=== PATIENT | male | born 1975 | race Caucasian/White ===

== ENCOUNTER → 2019-10-05 10:02 | Outpatient (CLI) | payer OTHER, SELFPAY ==
[2019-10-05 09:57] VITALS: BMI 31.4
--- NOTE | 2019-10-05 10:02 | RAD_ITS ---
STUDY: X-RAY - RIGHT SHOULDER REASON FOR EXAM: Male, 44 years old. CHRONIC RT SHOULDER PAIN X 3 MONTHS TECHNIQUE: 4 view(s) of the shoulder. COMPARISON: None. FINDINGS: Normal glenohumeral articulation. Normal acromioclavicular joint. Normal acromion. Normal humeral head and visualized proximal humerus. The soft tissue structures are unremarkable. Normal visualized pulmonary apex. RAD/Shoulder min 2 Views IMPRESSION: Normal x-ray examination of the shoulder. Electronically Signed: Faizan Leonardo, at 15:27 EDT , Service support ,
== END ==
LOC: HPRAD 10:02
PROVIDERS: Referring Provider Orthopaedic Surgery; Visit Provider Orthopaedic Surgery
DX: M25.511 Pain in right shoulder (principal)
CPT/HCPCS: 73030

== ENCOUNTER 2020-01-20 13:53 | Emergency (ER) | payer OTHER, SELFPAY ==
[2019-10-05 09:57] VITALS: BMI 31.4
[2020-01-20 13:54] VITALS: BP 138/95; PULSE 88; RESP 24; TEMP 37; O2SAT 94; BMI 31.4
--- NOTE | 2020-01-20 14:22 | CT_ITS ---
STUDY: CT BRAIN WITHOUT CONTRAST REASON FOR EXAM: Male, 44 years old. RECENT FALL, Dizziness, slurred SPEECH RADIATION DOSAGE (If Supplied By Facility): CTDIvol = ( 44.99 ) mGy, DLP = ( 762.36 ) mGycm TECHNIQUE: Transaxial CT imaging of the brain was performed without administration of intravenous contrast material. Individualized dose optimization techniques were used for this CT. COMPARISON: No relevant priors. FINDINGS: Normal soft tissue structures. Normal calvarium. Normal size ventricles and extra-axial spaces for the patient''s age. Normal white matter tracts of the cerebral hemispheres. Normal basal ganglia and thalami. Normal brainstem. Normal cerebellum. There is no intracranial hemorrhage. There are no findings of an acute ischemic infarction. Normal visualized paranasal sinuses. CT/Brain/Head without Contrast IMPRESSION: Normal unenhanced CT scan of the brain. Electronically Signed: Faizan Leonardo, at 15:21 EDT , Service support ,
--- NOTE | 2020-01-20 14:26 | EKG12_ITS ---
Test Reason : FALL Blood Pressure : / mmHG Vent. Rate : 080 BPM Atrial Rate : 080 BPM P-R Int : 150 ms QRS Dur : 092 ms QT Int : 408 ms P-R-T Axes : 046 086 042 degrees QTc Int : 470 ms Normal sinus rhythm Normal ECG Confirmed by ALEXUS SULLIVAN, NILSON ([id number]), editor greeting card NOÉ MCNEILL ([id number]) on 01/23/2020 2:49:26 PM Referred By: BIANCA Confirmed By:JESSICA VAUGHAN MD
[2020-01-20 14:53] VITALS: RESP 16
--- NOTE | 2020-01-20 14:53 | CT_ITS ---
STUDY: CT CERVICAL SPINE WITHOUT CONTRAST REASON FOR EXAM: Male, 44 years old. RECENT FALL, DIZZINESS,SLURRED SPEECH RADIATION DOSAGE (If Supplied By Facility): CTDIvol = ( 26.53 ) mGy, DLP = ( 591.45 ) mGycm TECHNIQUE: High resolution transaxial imaging was performed without contrast material. Sagittal and coronal images were reconstructed. Individualized dose optimization techniques were used for this CT. COMPARISON: None FINDINGS: Normal craniovertebral junction. Normal anterior atlantoaxial articulation. Normal odontoid process. There is straightening of the normal cervical lordosis. Normal vertebral bodies and posterior osseous elements. C2-3: Normal endplates. Normal disc height and morphology. Normal central canal and intervertebral neuroforamina. C3-4: Normal endplates. Normal disc height and morphology. Normal central canal and intervertebral neuroforamina. C4-5: Normal endplates. Normal disc height and morphology. Normal central canal and intervertebral neuroforamina. C5-6: Moderate degree of disc space narrowing. Anterior and posterior spondylosis. There is evidence of a uncovertebral arthrosis with moderate narrowing of the right intervertebral foramen. C6-7: Posterior spondylosis causing deformity of the central sac worse on the right side of the midline. Uncovertebral arthrosis. Bilateral neural foraminal stenosis worse on the right side. C7-T1: Normal endplates. Normal disc height and morphology. Normal central canal and intervertebral neuroforamina. Normal visualized soft tissue structures. CT/Spine Cervical without Contras IMPRESSION: Disc space narrowing at the C5-C6 and C6-C7 levels with evidence of bile moderate degree of the right neural foraminal stenosis at both levels and mild neural foraminal stenosis at the C6-C7 level on the left side. Electronically Signed: Faizan Leonardo, at 15:22 EDT , Service support ,
--- NOTE | 2020-01-20 14:59 | ED.VIS.GEN ---
History of Present Illness <Marcelino Foreman - Last Filed: 01/20/20 15:00> Informant: Patient, Family, Unit Technician Limited by: Stupor Onset: Weeks - 2 weeks Context: Gradual Onset Timing: Intermittent Quality: off balance Location: head Current Severity: Mild Maximum Severity: Severe Worsened by: walking Relieved by: nothing Associated Symptoms: dizzy Narrative: 44-year-old male history of type 2 diabetes presents after a fall by squad. He has had multiple falls and has been off balance and dizzy over the last several weeks. He has had outpatient work-up with his primary care without a diagnosis. He has been feeling well so his took him to the urgent care this morning and they ordered labs and other test which have not resulted. She came home to find him on the ground after another fall with a contusion on the left side of his face. Patient history is somewhat limited from the patient as he is somewhat confused. Rest review of systems negative Prior similar symptoms: No Recent Illness/Hospitalization: No <Danny Dumont - Last Filed: 01/20/20 16:17> Chief Complaint: Alt LOC Past Medical History <Marcelino Foreman - Last Filed: 01/20/20 15:00> Prior records reviewed: Yes Past Medical History: - - T2DM Surgical History: - - gastric bypass Lives: With Family Smoking Status: Never smoker Alcohol: None Drugs: None <Danny Dumont - Last Filed: 01/20/20 16:17> - Allergies and Home Meds Allergies/Adverse Reactions: Allergies Penicillins Allergy (Severe, Verified 10/05/19 09:59) Low blood pressure Patient lost consciousness with an injection Primary Care Physician: Dimitrios Mark MD [Primary Care Provider] - Review of Systems All systems negative except as indicated General: Denies: Chills, Fever, Sweats Eyes: Denies: Visual changes - bilaterally, Diplopia ENT: Denies: Rhinorrhea, Sore throat Cardiovascular: Denies: Chest pain, Palpitations Respiratory: Denies: Dyspnea, Cough, Dyspnea on exertion Gastrointestinal: Denies: Abdominal pain, Nausea, Vomiting, Diarrhea, Melena, Hematochezia Genitourinary: Denies: Dysuria, Hematuria, Frequency Musculoskeletal: Denies: Back pain, Extremity Pain Skin: Reports: Abrasions. Denies: Rash, Wounds Neurological: Denies: Headache, Weakness, Parasthesia, Numbness <Danny Dumont - Last Filed: 01/20/20 16:17> Physical Exam Vital Signs/Narrative: Vital Signs Temp Pulse Resp BP Pulse Ox 01/20/20 14:53 16 01/20/20 13:54 98.6 F 88 24 H 138/95 H 94 <Marcelino Foreman - Last Filed: 01/20/20 15:00> Vital Signs/Narrative: Vital Signs Temp Pulse Resp BP Pulse Ox 01/20/20 14:53 16 01/20/20 13:54 98.6 F 88 24 H 138/95 H 94 Inital Vital Signs reviewed: Yes General: Well nourished, Well developed, No Acute Distress Head: Normocephalic, Atraumatic Eyes: Perrl, EOMI ENT: Moist mucous membranes, No rhinorrhea Neck: Supple, Nontender Cardiovascular: Regular rate, Regular rhythm, No murmurs Respiratory: No distress, CTA bilaterally, Chest nontender Abdomen: Soft, Nontender, Nondistended, Normal bowel sounds Back: Nontender, Normal Inspection Extremities: Nontender, No edema Skin: Normal color, No rash, Trauma - abrasion left side of forehead without laceration Neurological: Alert, Oriented x3, Cranial nerves II-XII grossly intact, Normal Strength, Normal Sensation Psychological: Normal affect, Normal Mood <Danny Dumont - Last Filed: 01/20/20 16:17> Diagnostic/Tx/Re-eval - Medical Decision Making Evaluating this patient with our physician workforce development assistant. 44-year-old male with recent falls with left-sided head injury. He has had extensive work-up done to [facility] for GI complaints without any specific diagnosis. states due to fall today he has a contusion left side of his face. He seems to be acting abnormally. He is asked her multiple times why he is in the emergency department. She states when she went home he was laying down the dog was licking his face and he just did not seem to be with it. He was not unconscious. Middle-age male no acute distress vital signs stable afebrile. HEENT exam pupils round reactive laser motions are intact. Tongue midline no bite hidalgo. No swelling. Dentition intact. He has an old contusion his left forehead he has an abrasion and contusion left side of his face lateral to his eye and over his cheekbone. There is no gross bony deformities. C-spine nontender. Trachea midline. Lungs clear to auscultation. Heart regular rhythm no murmur. Chest were nontender. Abdomen soft nontender. Patient moving all 4 extremities. He has normal curator natural history museum strength bilaterally. 5 out of 5. Normal dorsi plantarflexion. He can lift either leg. Fingertip to nose within normal limits. He did know day, month and year. CAT scan labs are being obtained. Impression: 1. Acute fall with closed head injury <Marcelino Foreman - Last Filed: 01/20/20 15:00> Impressions Brain CT 01/20/20 14:22 IMPRESSION: Normal unenhanced CT scan of the brain. Electronically Signed: Faizan Jorden, at 15:21 EDT , Service support , Cervical Spine CT 01/20/20 14:53 IMPRESSION: Disc space narrowing at the C5-C6 and C6-C7 levels with evidence of bile moderate degree of the right neural foraminal stenosis at both levels and mild neural foraminal stenosis at the C6-C7 level on the left side. Electronically Signed: Faizan Leonardo, at 15:22 EDT , Service support , 01/20/20 14:22 CT Brain [Brain/Head without Contrast] [CT] Stat 01/20/20 14:53 CT Spine [Spine Cervical without Contras] [CT] Stat Laboratory Results 01/20/20 01/20/20 13:50 13:50 WBC 5.7 RBC 4.87 Hgb 17.3 H Hct 50.9 MCV 104.5 H MCH 35.5 H MCHC 34.0 RDW Std Deviation 48.3 H RDW Coeff of Wale 12.3 Plt Count 201 MPV 10.3 Immature Gran % (Auto) 0.200 Neut % (Auto) 53.2 Lymph % (Auto) 34.6 Kemper % (Auto) 10.2 H Eos % (Auto) 1.4 Baso % (Auto) 0.4 Absolute Neuts (auto) 3.0 Absolute Lymphs (auto) 1.96 Nucleated RBC % 0 Sodium 145 Potassium 3.9 Chloride 110 H Carbon Dioxide 27.0 Anion Gap 8 BUN 8 Creatinine 0.79 Estim Creat Clear Calc 125.76 Est GFR (MDRD) Af Amer 137 Est GFR (MDRD) Non-Af 113 BUN/Creatinine Ratio 10.2 Glucose 98 Calcium 8.3 L - EKG Initial EKG Interpretation: Sinus Rhythm, No Acute Injury Pattern Prior: No Prior - Medical Decision Making EKG CT and labs all came back unremarkable. The patient is resting comfortably. At this time we feel this is likely from a postconcussive syndrome. Head injury precautions and supportive care were discussed he will follow-up with his primary care on Thursday or return for worsening symptoms. <Danny Dumont - Last Filed: 01/20/20 16:17> ED Disposition <Marcelino Foreman - Last Filed: 01/20/20 15:00> <Danny Dumont - Last Filed: 01/20/20 16:17> - Plan for ED Patient: Disposition: Home or Assisted Living Diagnosis: Post concussive syndrome, Facial abrasion Referrals: Dimitrios Mark MD [Primary Care Provider] -
--- NOTE | 2020-01-20 15:00 | ED.VISSUMM ---
- ER Visit Summary Date of Service: 01/20/20 Chief Complaint: [] History of Present Illness: The patient is a 44 M [] Physical Examination: [] Test Results: [] Emergency Department Course and Treatment: [] Treatment Plan: [] Disposition: [] Impression: [] This note was generated with [place]. com. cn dictation software. It may contain incorrect words, spelling, and punctuation that were not noted in review of the chart prior to signing ED Disposition - Plan for ED Patient: Referrals: Dimitrios Mark MD [Primary Care Provider] -
[2020-01-20 15:14] LABS: Absolute Lymphocyte Count 1.96 X10^3/uL (0.83-4.51); Basophil# 0.02 X10^3/uL; Basophil% 0.4 % (0-1); Eosinophil# 0.08 X10^3/uL; Eosinophils% 1.4 % (0-5); Hematocrit 50.9 % (40-54); Hemoglobin 17.3 g/dL (13.0-16.5); Lymphocyte # 1.96 X10^3/ul (4.0); Lymphocyte % 34.6 % (19-41); Mean Corpuscular Hgb 35.5 pg (27.0-32.0); Mean Corpuscular Volume 104.5 fL (80-94); Mean Platelet Vol. 10.3 fl (6.2-12.0); Monocyte# 0.58 X10^3/uL; Monocyte% 10.2 % (0-10); NRBC Flagged by Analyzer 0 % (0-5); Neutrophil # 3.02 X10^3/uL (2.7-7.7); Neutrophil % 53.2 % (47-70); Platelet Count 201 K/mm3 (150-450); RBC Distribution Width CV 12.3 % (11.6-14.6); RBC Distribution Width SD 48.3 fl (35.1-43.9); Red Blood Count 4.87 M/mm3 (4.6-6.2); White Blood Count 5.7 K/mm3 (4.4-11.0)
[2020-01-20 15:15] VITALS: BP 123/92; PULSE 88; RESP 14; O2SAT 98
[2020-01-20 15:26] LABS: Anion Gap 8 (5-15); BUN 8 mg/dL (7-18); BUN/Creat Ratio 10.2 RATIO (10-20); Calcium,Total 8.3 mg/dL (8.5-10.1); Chloride 110 mmol/L (98-107); Creatinine, Serum 0.79 mg/dL (0.70-1.30); EST Glomerular Filtration Rate 113 mL/min (>60); Est Glom Filt Rate - Afr Amer 137 mL/min (>60); Estimated Creatinine Clearance 125.76 ml/min; Glucose 98 mg/dL (74-106); Potassium 3.9 mmol/L (3.5-5.1); Sodium Level 145 mmol/L (136-145)
[2020-01-20 16:06] VITALS: BP 130/86; PULSE 87; RESP 17; O2SAT 97
[2020-01-20 16:08] LABS: Bacteria 0 SEEN /hpf (None Seen); Mucous, Urine 0 SEEN /hpf (<or=2+); Red Blood Cells-Urine 0 SEEN /hpf (0-5); Squamous Epithelial Cells - UA 0 SEEN /hpf (0-5); White Blood Cells 0 SEEN /hpf (0-5)
[2020-01-20 16:53] LABS: Color, Urine Yellow (Yellow); Glucose, Dipstick Normal (Normal); Ketone-Dipstick Negative (Negative); Leukocyte Esterase-Dipstick Negative /ul (Negative); Nitrite-Dipstick Negative (Negative); Occult Blood-Urine Negative /ul (Negative); Protein-Dipstick Negative (Negative); Urine Bilirubin Dipstick Negative (Negative); Urine Clarity Clear (Clear); Urine Urobilinogen Normal (Normal)
== END 2020-01-20 16:47 | disposition home or self-care (01) ==
PROVIDERS: Emergency Provider Physician Assistant Medical; PCP Internal Medicine
DX: F07.81 Postconcussional syndrome (principal); S00.81XA Abrasion of other part of head, initial encounter; Z98.84 Bariatric surgery status; W19.XXXA Unspecified fall, initial encounter
CPT/HCPCS: 70450; 72125; 80048; 81001; 85025; 93005; 99285; A4216

== ENCOUNTER 2020-04-17 12:55 | Emergency (ER) | payer OTHER, SELFPAY ==
[2020-04-17 12:56] VITALS: BP 151/102; PULSE 85; RESP 16; TEMP 35.8; O2SAT 98; BMI 30.7
--- NOTE | 2020-04-17 13:17 | ED.VIS.GEN ---
History of Present Illness Chief Complaint: Suicidal Informant: Patient Narrative: Patient is a 44-year-old previously healthy male who presents to the emergency department for suicidal ideation. He states he has felt this way for years. He is never acted on it. He did have a plan but his removed all the guns and ammo from the house. States that he feels like a disappointment to his family. He has been arguing with his as well. He does follow with a counselor regularly. He is on Cymbalta as well for anxiety/depression. He has been drinking over the past couple of days but he is not a regular drinker. Never been through withdrawal. No issues with drug use. Denies smoking cigarettes. He denies any other symptoms. Past Medical History - Allergies and Home Meds Allergies/Adverse Reactions: Allergies Penicillins Allergy (Severe, Verified 04/17/20 12:59) Low blood pressure Patient lost consciousness with an injection Primary Care Physician: Dimitrios Mark MD [Primary Care Provider] - As soon as possible Prior records reviewed: Yes Surgical History: - - gastric bypass Smoking Status: Never smoker Review of Systems All systems negative except as indicated General: Denies: Chills, Fever, Sweats Eyes: Denies: Visual changes - bilaterally, Diplopia ENT: Denies: Rhinorrhea, Sore throat Cardiovascular: Denies: Chest pain, Palpitations Respiratory: Denies: Dyspnea, Cough, Dyspnea on exertion Gastrointestinal: Denies: Abdominal pain, Nausea, Vomiting, Diarrhea Genitourinary: Denies: Dysuria, Hematuria, Frequency Musculoskeletal: Denies: Back pain, Extremity Pain Skin: Denies: Rash, Wounds Neurological: Denies: Headache, Weakness, Numbness Psych: Reports: Depression, Suicidal thoughts, Suicidal ideations Physical Exam Vital Signs/Narrative: Vital Signs Temp Pulse Resp BP Pulse Ox 04/17/20 12:56 96.4 F L 85 16 151/102 H 98 Inital Vital Signs reviewed: Yes General: Well nourished, Well developed, No Acute Distress Head: Normocephalic, Atraumatic Eyes: Perrl, EOMI Neck: Supple, Nontender Cardiovascular: Regular rate, Regular rhythm, No murmurs Respiratory: No distress, CTA bilaterally, Chest nontender Abdomen: Soft, Nondistended Back: Nontender, Normal Inspection Extremities: Nontender, No edema Skin: Normal color, No rash Neurological: Alert, Oriented x3, Cranial nerves II-XII grossly intact, Normal Strength, Normal Sensation Psychological: Normal affect, Normal Mood Diagnostic/Tx/Re-eval - Medical Decision Making Patient presents to the ED for suicidal ideation. He has had plans but never acted on them. Upon arrival to the emerge department vital signs within normal limits. He is in no acute distress. He is calm and cooperative on exam. Will check basic lab work for medical clearance. Will have social work and crisis evaluate. Lab work-up did not reveal any significant acute abnormality. He does have some alcohol in his system but is not over the legal limit. Social work did evaluate the patient. They do not feel he meets any inpatient criteria. He was having suicidal thoughts yesterday but does not have any plan. He does look forward to events in the future. He has been talking about his plans coming up. He is supposed to follow-up with a psychiatrist but has never made an appointment. His is going to help schedule this. All guns and ammo are out of the house. They are going to do frequent checks on him. They both feel comfortable going home. He does not want to be admitted for psychiatric placement. He is stable for discharge. Strict return precautions are discussed with him. He is discharged home in stable condition. All questions were answered. ED Disposition - Plan for ED Patient: Disposition: Home or Assisted Living Diagnosis: Suicidal ideation Instructions: Counseling for Depression Referrals: Dimitrios Mark MD [Primary Care Provider] - As soon as possible
[2020-04-17 13:41] LABS: Absolute Lymphocyte Count 0.75 X10^3/uL (0.83-4.51); Basophil# 0.02 X10^3/uL; Basophil% 0.5 % (0-1); Eosinophil# 0.06 X10^3/uL; Eosinophils% 1.4 % (0-5); Hematocrit 46.8 % (40-54); Hemoglobin 15.6 g/dL (13.0-16.5); Lymphocyte # 0.75 X10^3/ul (4.0); Mean Corp Hgb Conc 33.3 g/dL (32-36); Mean Corpuscular Hgb 35.1 pg (27.0-32.0); Mean Corpuscular Volume 105.2 fL (80-94); Monocyte# 0.57 X10^3/uL; Monocyte% 12.9 % (0-10); NRBC Flagged by Analyzer 0 % (0-5); Neutrophil # 3.01 X10^3/uL (2.7-7.7); Platelet Count 176 K/mm3 (150-450); RBC Distribution Width CV 13.2 % (11.6-14.6); RBC Distribution Width SD 50.7 fl (35.1-43.9); Red Blood Count 4.45 M/mm3 (4.6-6.2); White Blood Count 4.4 K/mm3 (4.4-11.0)
[2020-04-17 13:53] LABS: Anion Gap 4 (5-15); BUN 9 mg/dL (7-18); BUN/Creat Ratio 11.2 RATIO (10-20); Calcium,Total 8.6 mg/dL (8.5-10.1); Chloride 106 mmol/L (98-107); EST Glomerular Filtration Rate 111 mL/min (>60); Est Glom Filt Rate - Afr Amer 134 mL/min (>60); Estimated Creatinine Clearance 124.19 ml/min; Glucose 89 mg/dL (74-106); Potassium 4.1 mmol/L (3.5-5.1); Sodium Level 142 mmol/L (136-145)
[2020-04-17 14:00] VITALS: RESP 16
[2020-04-17 14:34] LABS: Amphetamine Urine VISTA NEGATIVE (<1000 ng/mL); Barbiturate Urine VISTA NEGATIVE (< 200 ng/mL); Benzodiazepine Urine VISTA NEGATIVE (< 200 ng/mL); Cocaine Urine VISTA NEGATIVE (< 300 ng/mL); Ecstacy Urine VISTA NEGATIVE (< 500 ng/mL); Methadone Urine VISTA NEGATIVE (< 300 ng/mL); PCP Urine VISTA NEGATIVE (< 25 ng/mL); THC Urine VISTA NEGATIVE (< 50 ng/mL); Vista UDS pH Range 7
--- NOTE | 2020-04-17 14:58 | CM.ED ---
Social Work Consult: Suicidal Informant: Dr. Kelly Chief Complaint: Patient reports to have informed my counselor that patient was having suicidal thoughts. Patient states she made me come here. Marital/Social History: to Kimberly Miranda. Patient reports to have two children, ages 21 and 17. Living Situation: Lives with spouse and 17 year old daughter. Support/Resources: Active with counseling services through [facility] in [place], [place]. Patient sees Aleta ([phone]) for counseling. Patient has a pending psychiatric referral from patient PCP. Patient has not followed up with setting up psychiatric appointment. PCP (Dr. Mark) prescribes patient medications. 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 Denies any issues with comprehension or understanding. Mental Health Treatment/History: Depression. Patient reports to take Cymbalta as prescribed. Patient denies any history of inpatient psychiatric services. Patient reports to have appointment with Dr. Mark tomorrow to have patient assessed for ADHD. Triggers/stressors: Patient reports arguments with my . Coping Skills: Yoga, riding bike and talking with someone. Abuse Issues: Denies Substance Abuse Hx: Reports occasional alcohol use. Patient reports to consumed alcohol 1-2 times a week with typical goal to knock myself out. Patient denies any other substance abuse/use. Risk to Self/Others: Patient denies active suicidal thoughts, plans, intents. Patient reports last suicidal thought was yesterday. Patient states if I would kill myself I would use a gun. Patient reports to have guns in the home. Patient denies thinking out a plan on how patient would complete suicide. Patient denies attempting suicide. Patient reports to have multiple family members and friends that have completed suicide via gun shot, but no recent events. Patient denies homicidal thoughts, plans, intents. Patient reports to feel safe to self. Patient forward thinking as talking about appointment tomorrow with doctor and needing to focus on work. Patient denies self harming behavior. Mental Status Exam: A&OX3 Appearance/General Behavior: Clean. Calm. Mood/Affect: Appropriate. Pleasant. Engaged in conversation. Communication Pattern: Responds to questions. Thought Process: Denies V/A hallucinations or paranoia. Judgement: Good Assessment: Met with patient in room. Introduced self and social work lecturer role. Patient agreeable to speak with this social work lecturer. Patient reports that patient and patient spouse's relationship has been strained. Patient reports to fight often with spouse. Patient reports I actually work for my . Patient reports to be able to continue to live with spouse and to feel safe with spouse, I just don't think straight all the time. Patient attributes arguments with spouse to patient no understanding or remembering to do things. Patient looking forward to assessment tomorrow for ADHD with patient PCP. Patient reports to have started counseling in September of this year and this has helped, although patient has not always been consistent with counseling appointments. Patient reports to have recently increased counseling appointments to every as I needed to talk with someone more. Patient states I want to figure this out. This social work lecturer inquiring as to what type of firearms patient has, patient reports to have three guns that are all shotguns. Patient signing release of information for this social work lecturer to speak with patient counselor, Aleta. Patient provided verbal permission for this social work lecturer to speak with patient spouse. Patient is not currently pink slipped. Telephone call to Raoul and Aleta Jurado. Aleta reports that patient did inform Aleta of suicidal thoughts. Aleta was did not clarify as to when patient was having suicidal thoughts but patient did inform Aleta that patient would completed suicide with a gun if he were to do it. Aleta reports to have then called patient spouse and had patient brought to the ED today for mental health evaluation. This social work lecturer updated Aleta on above assessment. Aleta agreeable to discharge to home if firearms are able to be secured as patient is forward thinking with this social work lecturer and was also presenting as forward thinking when speaking with Aleta today. Telephone call to patient spouse, Kimberly. Kimberly reports to have removed all three shotguns/firearms from the home and patient no longer has access to them. Kimberly reports to be agreeable to patient returning to home and plans to have patient on safety checks. Met with patient in room again. This social work lecturer completed safety plan with patient. Patient counseled on lethal means and aware that the firearms have been removed from the home. Patient denies having access to medications or other lethal means. Patient states I would not kill myself any other way, I do no like pain. Patient comfortable with plan to discharge to home and again states I need to get this figured out. This social work lecturer inquiring about [facility] Behavioral Health program for patient. Patient is open to this social work lecturer making referral and having an intake appointment tomorrow, 04/18/2020 at 2:00pm to check it out. This social work lecturer provided patient with crisis hotline, local counseling resources, and appointment reminder for [facility] Behavioral Health appointment tomorrow. This social work lecturer also encouraging patient to pursue appointment with a psychiatrist. Patient aware that if patient starts the Behavioral Health program that patient will be able to be accessed by a psychiatrist but that the program is not longer term. Patient reports that patient spouse is able to provide transportation to home for patient. Updated Dr. Kelly on above, all agreeable to plan for patient to discharge to home. 1:1 sitter discontinued. Firearms have been secured. Patient forward thinking with no specific plan or intent. PLAN: Discharge to home with spouse and mental health follow-up. Mejia JOE, ADRIENNE
[2020-04-17 15:00] VITALS: RESP 16
== END 2020-04-17 16:04 | disposition home or self-care (01) ==
PROVIDERS: Emergency Provider Emergency Medicine; PCP Internal Medicine
DX: R45.851 Suicidal ideations (principal); F41.9 Anxiety disorder, unspecified; F32.9 Major depressive disorder, single episode, unspecified; Z88.0 Allergy status to penicillin; Z98.84 Bariatric surgery status
CPT/HCPCS: 36415; 80048; 80307; 80320; 85025; 87426; 99283; G0480

== ENCOUNTER 2020-04-25 08:30 | Outpatient (RCR) | payer OTHER, SELFPAY ==
--- NOTE | 2020-04-25 10:20 | BH.NA_ITS ---
Physical Data - Vital Signs Pulse Rate: 72 Blood Pressure: 155/106 - Height/Weight Height: 1.8 m Weight:: 102.058 kg Weight in Pounds: 225.0 lbs Current Medication Compliance - Medication Compliance Do you take your medication as prescribed?: Yes Nutritional History - Appetite Nutritional Instructions:: If client shows signs of a swallowing problem, weight change of 10 pounds or more in the last month, or is on a diabetic diet, the physician will review and request a dietitian consult, as appropriate. All unintentional weight loss will be referred to the physician for decision on need for dietitian consult. Describe your appetite:: Poor Additional nutritional information:: Client states decreased appetite but states he has not had any weight loss. Functional Assessment - Sleep Pattern Describe any problems with sleeping: Client states he sleeps about 7 hours per night. - Activities Motor Activity:: Functional Sensory/Communication Assess - Vision Problems Do you have any vision problems?: Glasses - Communication Problems Do you have difficulty understanding what people are saying?: No Medical Problems/History - Gastrointestinal Conditions Gastrointestinal: Other (See comments) Comments:: previous Type 2 diabetic- used to be on medication prior to gastric bypass Surgical History - Surgical History Have you had any surgeries? If so, list type and date:: Yes - gastric bypass, appendectomy, knee scope Substance Abuse - Substance Abuse Please describe substance abuse in the last 30 days:: Client states he drinks 1- 2 drinks 2 times per week. Client states he stopped using tobacco 2 years ago. Client denies drug use. Client drinks calorie free energy drink. Mental Status Summary - Mental Status Significant Findings/Observations on Appearance and Mood:: Client is alert and oriented x 4. Client is casually groomed. Client makes fair eye contact. Clients voice with normal rate and volume. Client appears mildly depressed and anxious. Client makes logical associations. Client denies delusions/hallucinations. Client denies SI. Suicide Assessment - Suicidal Ideation Are you currently or have you been suicidal in the past?: Yes - client denies SI Suicidal Intentional Rating Scale (SIRS): Suicidal thoughts (past) Physician Notification: If Active suicidal thoughts/Will not contract for safety is checked, contact physician and document in the Physician Notification section below. Past Psychiatric History - MH Treatment Hx Past Psychiatric Medications:: 2 medications that he does not know the name of Age of first mental health symptoms: Client states he has been on Cymbalta since 2012. Describe (age, circumstance, etc) any past hospitalizations: None. Current providers for mental health treatment (counselor, psychiatrist, case making machine operator, etc.): [facility] and [facility] for counseling Fall Risk Assessment - Age Age: Less than 60 - Mental Status Mental Status: Willing & able to ask for assistance when needed - Physical Status Physical Status: No problems - Impairments Impairments: None - Elimination Elimination: Continent AND independent - Gait or Balance Gait or Balance: Walks independently - Hx of Falls History of falls in the past 6 months: No known history - Medications/Substances Psychotropics:: Antidepressants Others:: Antihypertensives Medications/substances used within the past 24 hours or ordered to administer: 1-2 of the medications/substances listed above - Total Score Total Points:: 1 RN Summary of Impressions - Impressions Recommendations: Include psychiatric and medical issues, treatment planning recommendations, and discharge planning needs. Impressions: Psychiatric Issues: depression Impression: General Medical Conditions: Clients BP 155/106. Discussed with client. Client states his BP medication was just increased on 04/18/20. Discussed with client need to recheck, client voices understanding. - Level of Care How do the client's current symptoms and functional deficits support need for this level of care?: Client was referred to program after going to the ER after talking to his counselor about suicidal thoughts. Client denies SI at this time. Client states his symptoms of depression have worsened in recent months due to isolation and having no social outlet. Client is vague in stating his mental health symptoms. Client states a stressor is disagreements with . Client confirms still has guns away from where client can get them. IOP will promote gains and prevent further decompensation while providing social support and skills training.
[2020-04-25 10:49] VITALS: BP 155/106; PULSE 72
--- NOTE | 2020-04-25 11:11 | BH.SGPN.GN ---
Behaviors/Verbalizations/Mental Status: []Client alert and oriented, neatly dressed and groomed. Eye contact fair. Motor activity appropriate. Speech within normal limits. Affect constricted, mood dysthymic. Thoughts linear, logical, no signs of hallucinations or delusions. Client Response/Progress/Benefit: []Client engaged in session AEB contributing to discussion and taking notes. Client did well to participate during the activity in which participants were challenged to eliminate various items through group consensus. Client contributed to discussion of the barriers that occurred during the activity as well as the conflict resolution strategies. Client reviewed the worksheet on fair fighting rules to cope with conflict and client selected discussing one topic at a time as the skill client would like to improve. Appeared to benefit from learning strategies to better manage conflict. Client?s first day of IOP tx and appeared to connect well with peers. Will continue IOP tx to prevent decompensation, maintain safety, and increase knowledge of healthy coping skills. Narrative Note: []
--- NOTE | 2020-04-25 11:27 | PCM.BH.PSYEV ---
Psychiatric Evaluation - Initial Evaluation Initial Evaluation: History of Present Illness: [] The patient is a 44-year-old male who was referred to the [facility] behavioral health IOP program after having been seen in the [facility] emergency room on April 17, 2020 for depression and suicidal ideation. Patient has been for 20 years and lives in a house with his and his 17-year-old daughter. 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 He has worked at this job for over 5 years. He is currently stressed by having arguments with his and he feels that working together 10/11 and the stress of the pandemic where they have to have new projects at work and have to go fast and stay away from other workers has made his condition deteriorate. The patient says he has had depression since December 2019. On the day he was seen in the emergency room on April 17 he had suicidal ideation with a plan to use a gun. He had 3 guns in the home but these guns have since been removed from the house by his and he has no access to them. The patient also says he has had decreased concentration and he has trouble finishing tasks and doing his work adequately in the past few months and this has caused his to criticize him at work and when she does this he feels like a failure at work and a failure to his family. He endorses feeling sad and engaging in negative thinking. He has decreased motivation but denies feeling hopeless. He does endorse feeling worthless. He enjoys building things and is still enjoying this and he enjoys talking with someone about his problems. But for primary support he says he has no one. He says he has a mildly decreased appetite but sleep is okay at 7 hours a night. His energy level is okay during the day. Concentration is decreased but has improved slightly since starting a new medication on April 18, 2020. He feels guilty sometimes. He does admit to suicidal ideation on April 17 but says he has not had any suicidal ideation since April 17, 2020. At that time he had a plan to use a gun but he denies having a plan now. He does admit to having passive thoughts that he would not care if he . He denies homicidal ideation, hallucinations, delusions, symptoms of kika. He denies feeling anxious and he does not feel that he is a worrier by nature. He denies panic attacks, OCD, eating disorders, trauma and PTSD. He denies any history of self-harm. He does have a history of a concussion in December 2019 and he does not know how he fell and hit his head. He may have lost consciousness. He had a negative CT scan and states that no one ever figured out why he fell. He denies drinking alcohol as a cause for his fall although in the records from the hospital he admitted to drinking alcohol to excess although he denied it today in the interview. Current Psychiatric Medications: [] Cymbalta 60 mg p.o. daily (x6 years on this dose); Wellbutrin XL 150 mg p.o. every morning (since restarted on April 18, 2020; was on it since January 17 but had discontinued it). Past Psychiatric History: [] No psychiatric admissions ever. No history of suicide attempts. He did have an episode 30 years ago where he had suicidal ideation and held a gun to his head but he stopped himself and has no suicide attempts. He was first a PET depressed around age 13 and he feels he has had 6 or 7 episodes of depression in the past 30 years or so. He first took meds for psychiatric reasons in 2012 at age 37 and this was for depression and joint pains. The medication was Cymbalta and it did help him. He has been on maybe 2 other psych meds in the past and he had side effects on them but does not remember their names. He has a counselor that he is seeing about once a month but does not feel it is been helpful. He has had this counselor since September 2019. Substance Use History: [] He has a history of chewing tobacco off and on for 10 years but he quit after he had an gastric bypass in 2018. He used alcohol first at age 17 and was a heavy user of alcohol in college. He decreased his alcohol use after he was diagnosed with gout at age 26. More recently he drinks only 1-2 times a week and only has 1-2 drinks when he does drink because he gets drunk very easily since his bypass surgery. In the emergency room records it says the patient stated that he drank once or twice a week to knock himself out. But he denies that today. He is a non-smoker of cigarettes and denies any marijuana use. He denies any other drug use and has never been in rehab. Allergies: [] Penicillin and NSAIDs Medications: [] Lisinopril, allopurinol, multivitamin, Wellbutrin and Cymbalta Past Medical History: [] He has a history of obesity and is status post a Candy-en-Y gastric bypass surgery in December 2017. He has a history of diabetes mellitus type 2 which resolved after he lost 150 pounds since his surgery. He has a history of hypertension and gout. He has a history of migraine headaches which have resolved. He also had knee surgery and an appendectomy in the past. Family Psychiatric History: [] Patient's father is 72 years old and has diabetes mellitus. His mother is 65 years old and is very obese and has health problems. He denies any family history of suicide but in the records from the emergency room he said he did have family history of suicide with a gun. The patient adamantly denies that today. He has a sister who has a history of depression but he is not sure if she is on any medication. No other psych issues in the family. He has a father and several paternal uncles who have a history of alcohol abuse. No other drug issues in the family. Personal/Social History: [] Patient was born and raised in [place]. He describes his childhood as raised as a cervantes. His parents were and both were loving. He denies any physical, sexual or verbal abuse. He has 1 sister 6 years younger than him and they are close. School was hard for him until 6 grade because he did not try he says. From 6 grade on he says his mother cracked down on him and he then got straight A's and was an excellent student. He graduated high school and obtained a bachelor science in animal science in college. He is currently working on his masters degree. He at age 24 and has been for 21 years. His is 41 years old and she has a PhD and she is his boss at work in a lab. He describes his marriage as weird and not close but we love each other. His is supportive emotionally of him he says. They last had sex 12 years ago. He said the decision to not have sex with his 's. He denies any abuse in the marriage. They have never had marriage counseling. His 21-year-old son is currently in the [employer]. His 17-year-old daughter is a senior in high school and is graduating in 3 years and plans to major in physics. Legal History: [] No arrests. 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 No DUIs. No . Review of Systems: [] Negative except some history of joint pain which has improved since he had his weight loss. Vital Signs: [] Will be reviewed in nurses notes. Vital signs were reviewed in emergency room record from 1 week ago. Mental Status Examination: [] Patient is seen wearing a mask due to the Covid pandemic and is casually dressed and groomed with good hygiene. He has no psychomotor agitation or retardation. Eye contact is good and speech is normal rate and rhythm and fluent with no pressure. Mood is depressed. Affect is constricted. Thought process is goal-directed and organized. Thought content: There is evidence of passive thoughts of . There is no evidence of suicidal ideation since 1 week ago. No evidence of a plan for suicide. There is no evidence of hallucinations or delusions. Reality testing is intact. Intelligence is above average. Concentration is decreased by patient report. Judgment is intact. Insight: Limited. Impulsivity: Low to moderate. Diagnoses: [] Eldridge I: [] Major depressive disorder, recurrent, severe without psychosis; rule out history of alcohol use disorder Eldridge II: [] Deferred Eldridge III: [] Status post Candy-en-Y gastric bypass surgery in 2018, hypertension Eldridge IV: [] Primary support (marital), work issues. Plan: [] The patient will start the IOP program in behavioral health at [facility] as the structure, support, education, individual and group therapy will hopefully prevent worsening of the patient's symptoms which might require hospitalization. He felt safe during the interview and if at any time he does not feel safe he will let us know or go to the emergency room. The risk, options and possible complications and side effects of psych medications and his medications were discussed with the patient and he understands and accepts these. No medication changes were made today as the patient restarted his Wellbutrin XL on April 18, 2020. He will continue to follow-up with his outpatient medical and psychiatric providers. I strongly recommended marital counseling for the patient and long-term individual counseling to help with his low self-esteem issues.
--- NOTE | 2020-04-25 11:44 | BH.DR.ITP ---
Initial Treatment Plan - Patient Information Visit Information: ADMISSION DATE: EXPECTED LOS: 4-6 weeks - Problems/Symptoms Problem #1:: Depression Symptom:: Sadness, worthlessness, decreased appetite, decreased concentration, passive thoughts of , history of suicidal ideation
--- NOTE | 2020-04-30 09:05 | BH.SGPN.GN ---
Behaviors/Verbalizations/Mental Status: [] Eye contact is good. Motor activity is appropriate. Appearance is casual. Speech is Appropriate. Mood is depressed. Affect is flat. Thoughts are linear and logical. No evidence of psychosis. Reviewed daily check in sheet and pt did not report any suicidal thoughts Client Response/Progress/Benefit: [] Pt participated at times during discussion on the impact of gaslighting in mental health. He was unfamiliar with the term prior to group. Emotion for today is tried. Reports that he is feeling better and is functioning better. Notes increase focused and completing tasks. In the past he would start a task, never finish, and then move on to something else. Unable to pinpoint the reason for improved functioning however reports that it could be related to medication change or improved communication at work. Progress noted per pt report. Benefited from improved insight into gaslighting and support from peers. Will continue in IOP to maintain safety, stabilize mood, and increase health coping skills. Narrative Note: []
--- NOTE | 2020-04-30 10:10 | BH.SGPN.GN ---
Behaviors/Verbalizations/Mental Status: []Client alert and orient. Appearance casual and appropriately groomed. Speech an appropriate rate and tone. Motor activity appropriate. Mood dysthymic, affect congruent. No evidence of delusion or hallucinations.? Client Response/Progress/Benefit: []Client responded well to session, attentive and contributing to discussion. Group discussed potential barriers to communication including: yelling, name-calling, unmanaged emotions, facial expressions, and shutting down. Client shared personal experiences of how he has used passive communication to avoid conflict. Attentive during psychoeducation on the four communication styles. Client connected most with the passive and passive-aggressive styles due to wanting to avoid conflict. Able to acknowledge the costs of these styles on his mental health. Progress noted in increased insight into personal communication styles and barriers. Client will continue IOP tx to prevent decompensation, improve mood stability, and reduce negative thinking. Narrative Note: []
--- NOTE | 2020-04-30 11:15 | BH.SGPN.GN ---
Behaviors/Verbalizations/Mental Status: []Client alert and oriented, casually dressed and appropriately groomed. Eye contact good. Motor activity appropriate. Speech WNL. Affect constricted, mood dysthymic. Thoughts linear, logical, no signs of hallucinations or delusions. Client Response/Progress/Benefit: []Client responded well to session AEB client listening attentively to others and providing input during group discussion on the pay offs and costs of the different communication styles. Attentive during psychoeducation on DBT interpersonal skill CRESCENCIO and client selected an communication skill to practice. Client selected the skill of working on asserting himself because recognizes being passive results in his needs not getting met. Client seemed to benefit from increasing awareness of healthy strategies to improve communication. Will continue IOP tx to increase healthy coping, improve communication and prevent decompensation. Narrative Note: []
--- NOTE | 2020-04-30 13:02 | BH.MTP_ITS ---
Master Treatment Plan - Patient Information Program Physician:: Dr. Coyle Primary Therapist:: Tiffany Ocasio, [facility] - Psychiatric Diagnoses Psychiatric Diagnoses:: Major depressive disorder, recurrent, severe without psychosis; rule out history of alcohol use disorder Diagnosis Code(s):: F33.2 - Estimated LOS Estimated LOS (in weeks):: 6 Problem/Goal #1 - Problem/Goal #1 Stated Goal:: Client will reduce depression and feelings of worthlessness due to Major Depressive Disorder through Intensive Outpatient Program.? Description of Barriers: Potential barriers to treatment include: negative self- talk, passive communicator, strained relationship with , stressful work environment, avoids conflict, and minimizing symptoms. Functional Impact: Pt referred to IOP by [facility] ER due to patient having thoughts of suicide by using a gun. Pt's negative thoughts about feeling like a failure detoriated pt's self-worth. Pt endorses difficulty concentrating, having a hard time completing projects, decrease in appetite, negative self-talk, and passive thoughts of . Pt's conflict with is impacting his life at home and work because his is his boss. - Objectives Objective #1 Stated Objective: Identify at least 2-3 negative self-talk messages used to reinforce feelings of worthlessness and replace thoughts with positive messages.?? Interventions: Therapist will help client identify distorted, negative beliefs about self and replace with more realistic, affirmative messages.? Discharge Criteria: Client will have achieved this goal when can verbalize at least 2 negative self-talk messages and effectively replace those thoughts with affirmative messages.? Target Date: 06/06/20 Review Date: 05/23/20 Objective #2 Stated Objective: Client will learn and implement 2-3 effective communication skills to empower client to communicate thoughts and feelings. Interventions: Therapist will teach client effective communication skills and will provide homework for client to practice communication skills outside of sessions. Discharge Criteria: Client will have met this goal when can verbalize at least 2 communication strategies and report ability to effectively communicate with others. Target Date: 06/06/20 Review Date: 05/23/20 Objective #3 Stated Objective: Pt will decrease depressive symptoms AEB pt?s score on the DSM 5 cross-cutting measure and improve pt?s daily functioning. Interventions: Through groups and individual therapy, pt will be provided with education on cognitive distortions, mistaken beliefs, and identifying and combating negative self-talk. Therapist will assist pt with getting back into the activities she once enjoyed as well as increasing healthy coping strategies. Discharge Criteria: Pt will have met this goal when pt?s score on the DSM 5 cross cutting measure for depression has been decreased and per pt?s report daily functioning has improved. Target Date: 06/06/20 Review Date: 05/23/20
--- NOTE | 2020-04-30 14:54 | BH.MDN ---
Multi-Disciplinary Note - Note 30-min Individual Time Started:: 12:20 Date: 04/30/20 Purpose of session/treatment goals addressed:: Purpose of session was to assess pt's current symptoms and stressors. Additionally focused on identifying treatment goals. Eye Contact:: Good Motor Activity:: Appropriate Appearance:: Casual Speech:: Appropriate Mood:: Euthymic Affect:: Constricted Thoughts:: Linear, Logical, No evidence of hallucinations/delusions noted Staff Interventions:: Therapist used open ended questions to elicit pt's current symptoms and stressors. Therapist elicited the catalyst to pt seeking help. Therapist worked collaboratively with pt to identify treatment goals while in IOP. Therapist provided support by using active listening and validating emotions. Client Response:: Pt reported he has sought counseling due to having increased suicidal thoughts due to fealing like he is failing his famiily. 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 Pt reported he works with hsi at a local [employer] and she is his direct boss. Pt stated prior to the pandemic he would describe their communication as really good. Pt reported since having to work at home he feels his communicates in an aggressive manner. Pt stated he is a passive communicator which often leads to pt not getting his needs met. Pt reported he started to notice depressive symptoms starting in December 2019. Pt stated constant fights with his about him not doing the right thing or getting the projects done at work became too much for pt. Pt reported he started to internalize these comments and feel like he is not good enough. Pt stated prior to the stay at home order he got along great with his . Pt reported they did not have many arguements at work. Pt stated they often spent time together either biking, fishing, hiking, and walking together. Pt reported since the pandemic they will do some things together but not like before. Pt stated there has been a lot of change with their work life which has increased stress levels for both himself and his . Pt stated while in IOP he wants to work on being more respectful to myself, improve his communication and increase self-confidence. Risks/Concerns:: denies current suicidal thoughts, intent or plan. future focued. denies access to firearms. Progress Toward Goals/Plan:: No progress noted given this is pt's second day in IOP. Session focused on rapport building and establishing treatment goals for IOP. Pt is to continue IOP to increae healthy coping, challenge negative thoughts and prevent decompensation. Time Stopped:: 12:54
--- NOTE | 2020-05-02 09:00 | BH.SGPN.GN ---
Behaviors/Verbalizations/Mental Status: []Client alert and oriented, neatly dressed and groomed. Eye contact fair. Motor activity restless. Speech within normal limits. Affect flat, mood irritable and anxious. Thoughts linear, logical, no signs of hallucinations or delusions. Reviewed client?s symptom tracker, no report of SI, plan, or intent as of 05/02/20. Client Response/Progress/Benefit: []Client responded somewhat well to session, participating when prompted, but appeared disconnected. Client reports feeling bored this morning. Client's check-in was very brief as client shared nothing has changed since I was here last. Client reports his goal has been to stay on task and finish projects client starts. Client shared he has been doing well with this goal. Client did not identify any coping skills he has been using to help with his goal. No stressors reported this morning. Appeared to benefit from reflecting on progress towards personal goals. Will continue IOP tx to promote us of healthy coping skills and improve daily functioning. Narrative Note: []
--- NOTE | 2020-05-02 10:05 | BH.SGPN.GN ---
Behaviors/Verbalizations/Mental Status: [] Eye contact is good. Motor activity is appropriate. Appearance is casual. Speech is Appropriate. Mood is depressed/irritable. Affect is flat. Thoughts are linear and logical. No evidence of psychosis. Client Response/Progress/Benefit: [] Pt was an active participant in group discussion and was attentive during psychoeducation. Provided input on the quote of the day. Group was primarily educational and introduced and gave examples of the 10 cognitive distortions. Pt provided minimal input regarding examples of personal experiences for certain cognitive distortions. Benefited from education and increased awareness of cognitive distortions and role that they play in negative thoughts and emotions. Will continue in IOP to maintain safety, increase healthy coping, and prevent decompensation. Narrative Note: []
--- NOTE | 2020-05-02 11:15 | BH.SGPN.GN ---
Behaviors/Verbalizations/Mental Status: []Client alert and oriented, casual dress, hygiene tended to. Eye contact fair. Motor activity appropriate. Speech within normal limits. Affect constricted. mood dysthymic. Thoughts linear, logical, no signs of hallucinations or delusions. Client Response/Progress/Benefit: []Client was an passive participant AEB client providing limited input throughout session however appeared to listen attentively to peers. Client attentive during psychoeducation and additional discussion on cognitive distortions. Client listened to discussion about how to reframe distorted thoughts into more realistic, rational statements. Client worked in his small group by identifying a distorted thought and reframing it. Client chose not to share his distorted thought out loud to the group. Client seemed to benefit from practicing identifying and reframing distorted thoughts. To continue IOP to increase healthy coping skills, increase self-confidence, and prevent decompensation.
--- NOTE | 2020-05-04 09:05 | BH.SGPN.GN ---
Behaviors/Verbalizations/Mental Status: [] Eye contact is good. Motor activity is appropriate. Appearance is casual. Speech is Appropriate. Mood is irritable. Affect is congruent. Thoughts are linear and logical. No evidence of psychosis. Reviewed daily check in sheet and no reports of suicidal ideations or intent Client Response/Progress/Benefit: [] Pt spoke at times during group discussion. Attentive. Emotion for today is angry. Pt states I'm angry with myself. When asked to elaborate he presented as defensive and short with this therapist. States that group the other day about cognitive distortions really messed me up. He notes that he had never learned about cognitive distortions before and is upset that he does these. Notes being confused and overwhelmed stating he has been ruminating on these. Had trouble communicating to group what exactly about the group was distressful which hindered group's ability to provide feedback, however peer did attempt to normalize his frustration which appeared beneficial. Limited progress as pt is ruminating and angry. Will continue in IOP to maintain safety, increase health coping, and prevent decompensation. Narrative Note: []
--- NOTE | 2020-05-04 10:10 | BH.SGPN.GN ---
Behaviors/Verbalizations/Mental Status: []Client alert and oriented, casually dressed and groomed. Eye contact fair. Motor activity appropriate. Speech within normal limits. Affect constricted, mood dysthymic. Thoughts linear, logical, no signs of hallucinations or delusions. Client Response/Progress/Benefit: []Client was an active participant AEB contributing to discussion and participating in activity. Related to the quote and stated he is scared of conflict. Connected with the topic of pitfalls and helped the group discuss barriers that keep them from choosing a healthier path to mental wellness such as pitfalls. Group worked together to identify examples of personal pitfalls which included; avoidance behaviors, self-comparison, isolation, personalizing, catastrophizing, all or nothing thinking, and not meeting high expectations. Client shared his personal pitfall as all or nothing thinking. Benefited from group MARIZA client learned how to utilize healthy coping skills in stressful times within the activity. Progress noted as client worked well with other group members to accomplish the goal. Client will continue IOP to prevent decompensation, reduce avoidance behaviors, and reduce negative thinking. Narrative Note: []
--- NOTE | 2020-05-04 11:10 | BH.SGPN.GN ---
Behaviors/Verbalizations/Mental Status: []Client alert and oriented, neatly dressed and groomed. Eye contact good. Motor activity appropriate. Speech within normal limits. Affect congruent, mood depressed. Thoughts linear, logical, no signs of hallucinations or delusions. Client Response/Progress/Benefit: []Client receptive of session, engaged throughout AEB client participating in discussion and taking notes. Client completed a worksheet where client identified personal pitfalls impacting mental health progress. Client?s pitfalls included: being ?a pessimist,? labeling, procrastination, over-committing, lack of boundaries, all or nothing thinking, and lack of communication. Attentive and contributing during group brainstorm of strategies to overcome pitfalls. Client will work on overcoming pitfalls by writing out daily positives to combat negative thoughts. Benefited from identifying personal pitfalls and strategies to overcome these pitfalls. Progress notes in client?s increased engagement and insight to pitfalls. Will continue IOP tx to prevent decompensation, increase the use of healthy coping skills, and improve daily functioning. Narrative Note: []
--- NOTE | 2020-05-07 09:05 | BH.SGPN.GN ---
Behaviors/Verbalizations/Mental Status: [] Eye contact is good. Motor activity is appropriate. Appearance is neat. Speech is Appropriate. Mood is depressed/irritable. Affect is congruent. Thoughts are linear and logical. No evidence of psychosis. Reviewed daily check in sheet and no reports of suicidal ideations or intent. Client Response/Progress/Benefit: [] Pt spoke when prompted. Attentive. Emotion for today is tired. Reports that his marriage anniversary of 21 years was this weekend. Did not elaborate much on what he did with his stating we only went to [employer]. He brought up again his ruminations on concept of cognitive distortions stating I thought about them all weekend. He appears to be angry that he did not realize cognitive distortions existed and that he uses them so frequently. He struggles with communicating or elaborating on his distress or his overwhelming thoughts. Very short responses and often dismissive of attempts to encourage him to elaborate. Limited progress noted. Benefited from support and feedback from peers. Will continue in IOP maintain safety, prevent decompensation, and increase healthy coping. Narrative Note: []
--- NOTE | 2020-05-07 10:00 | BH.SGPN.GN ---
Behaviors/Verbalizations/Mental Status: []Client alert and oriented, casually dressed and appropriately groomed. Eye contact fair. Motor activity appropriate. Speech within normal limits. Affect constricted, mood dysthymic. Thoughts linear, logical, no signs of hallucinations or delusions Client Response/Progress/Benefit: []Client engaged during session AEB taking notes, providing input, and listening attentively to others. Client worked with peers on defining goals and brainstorming the benefits of goal setting. Benefits included: having a purpose or sense of direction, creating a positive change, feeling in control of the outcomes, provides motivation, increases self-esteem, improves mental health, shows progress in daily living, and feeling grounded. Group discussed the barriers that keep people from either setting goals or following through with goals. Client attentive during psychoeducation on SMART goals. Appeared to benefit from learning the mental health benefits of setting goals using SMART criteria. Progress noted as client understood the importance of group home and short term goals. Will continue IOP to reduce negative thoughts, improve mood, and increase the use of healthy coping skills. Narrative Note: []
--- NOTE | 2020-05-07 11:20 | BH.SGPN.GN ---
Behaviors/Verbalizations/Mental Status: []Eye contact is fair. Alert and oriented. Motor activity is appropriate. Appearance is casual. grooming is appropriate. Speech is Appropriate. Mood is dysthymic. Affect is constricted. Thoughts are linear and logical. No evidence of psychosis or hallucinations. Client Response/Progress/Benefit: []Client was engaged during discussion, did well to complete activity and process with the group. Client was willing to complete the worksheet in which he was challenged to develop a personal SMART goal. 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 Client stated this will benefit him by reducing stress level. Client identified his barriers which included: over committing, difficulty trusting others, and not enough time in the day. Client receptive to identifying solutions for these barriers and willing to begin working on this goal. Benefited from this group by developing a short-term SMART goal related to mental health. Client's first day in IOP. Will continue IOP tx to increase healthy coping skills, challenge negative thoughts and prevent decompensation. Narrative Note: []
--- NOTE | 2020-05-07 15:35 | BH.MDN ---
Multi-Disciplinary Note - Note 45-min Individual Time Started:: 12:15 Date: 05/07/20 Purpose of session/treatment goals addressed:: Purpose of session was to address goals 1 and 2 from MTP. Eye Contact:: Fair Motor Activity:: Appropriate Appearance:: Casual Speech:: Appropriate Mood:: Anxious, Dysthymic Affect:: Congruent Thoughts:: Linear, Logical, No evidence of hallucinations/delusions noted Staff Interventions:: thought challenging, CBT techniques, rapport building, strengths perspective, goal setting, taught coping skills - belly breathing Client Response:: Client reported he has been angry after having the cognitive distortions group because is in disbelief that he has been using such irrational thinking for most of his life. Client stated he wishes he knew about distortions before because it likely would have helped his mental health. Client responded well to therapist challenging him from verbally beating self up for not knowing about distortions. Client agreed he has been experiencing inappropriate guilt about not knowing about cognitive distortions. Client connected with most of the cognitive distortions and is happy he now knows about faulty thinking patterns because he can do something about these thoughts. Client reported when frustrated he typically internalizes this emotion. Client stated struggles with identifying a skill that can help him manage frustration. Responded well to being taught about belly breathing. Client reported things have been recently better with his because she is putting forth effort to better understand him. Client stated his has been changing her approach with him. Client will continue to practice healthy coping skills and increase awareness of distorted thoughts. Risks/Concerns:: Denies suicidal/homicidal ideation, plan or intention to date. Progress Toward Goals/Plan:: Client has been ruminating and personalizing that he didn't know about cognitive distortions until now. Client responded well to his perspective being challenged. Client realizes it is better to know about distortions now versus never learning about them. Client continues to struggle with all or nothing thought patterns. Client to continue IOP to increase healthy coping, challenge distorted thoughts and prevent decompensation. Time Stopped:: 13:00
--- NOTE | 2020-05-09 09:05 | BH.SGPN.GN ---
Behaviors/Verbalizations/Mental Status: []Alert and oriented, casually dressed and groomed. Eye contact fair. Motor activity restless. Speech within normal limits. Affect constricted, mood better than normal. Thoughts linear, no signs of hallucinations or delusions. Clients daily symptom tracker scores indicate no risk for SI, plan, or intent. Client Response/Progress/Benefit: []Client responded well to session, mostly quiet, but attentive. Client reports today he feels better than normal which client contributes to not overcommitting himself. Client has been working on delegating at work more instead of taking on more than client can handle. Client reports having no negatives this morning. Appeared to benefit from connecting with peers and reflecting on his progress with setting healthier work boundaries. Will continue IOP tx to reduce negative thinking, improve mood stability, and improve communication skills. Narrative Note: []
--- NOTE | 2020-05-09 10:20 | BH.SGPN.GN ---
Behaviors/Verbalizations/Mental Status: [] Eye contact is good. Motor activity is appropriate. Appearance is casual. Speech is Appropriate. Mood is depressed/irritable. Affect is congruent. Thoughts are linear and logical. No evidence of psychosis. Client Response/Progress/Benefit: [] Pt provided minimal participation in group discussion, however took leadership role during activity. Shared insights on the quote of the day. Attentive during psychoeducation. Client worked with group to identify forces that can impact growth and overall mental health. Positive factors that group identified can impact mental health included; asking for help, self-care, taking medications, personal hygiene, and utilizing coping skills. Pt was assertive during experiential group activity often encouraging peers. Processed the activity with peers and was able to make connections with the overall topic of the group. Pt benefited from increased awareness of the impact positive and negative forces can have on mental health and personal growth. Will continue in IOP to maintain safety, increase healthy coping and communication, and stabilize mood. Narrative Note: []
--- NOTE | 2020-05-09 11:08 | PCM.BH.PN ---
Progress Note Progress Note: History of Present Illness/Interim History: [] The patient is a 44-year-old male who is seen in follow-up at the [facility] behavioral health IOP program. I last saw the patient about 2 weeks ago and at that time he had been referred to the IOP from the emergency room where he had suicidal ideation. Since starting the program the patient says he is really enjoying the IOP program and he feels he is learning valuable skills that he can use to help manage his issues. He states that when he first found out that he really had these significant cut negative cognitive distortions he was somewhat angry about it. But he states that as he is thought more about it and learned more about cognitive distortions he is no longer angry and feels that he is beginning to work on correcting these negative distortions. At home he says there is still occasional times when he gets mad at himself. He says as an example his was critical of him when he cooked dinner and left grease from meat in the dietrich that could have caused his daughter who is a vegetarian to be exposed to meat products. He says that when his was critical of him he got mad only at himself. Patient has agreed to get marital counseling but he does not want to get the marriage counseling until he is in a better place. He is tolerating the Wellbutrin and feels that his mood is better it has kicked in and he restarted it about 3 weeks ago. He feels his mood is less depressed. He denies any suicidal or homicidal ideation. He denies any passive thoughts of . He denies any alcohol use. Current Psychiatric Medications: [] Wellbutrin XL 150 mg p.o. every morning (restarted 3 weeks ago).; Cymbalta 60 mg p.o. daily (x6 years) Mental Status Examination: [] Patient is a male who is seen wearing a mask due to the pandemic and is casually dressed and groomed with good hygiene. He has no psychomotor agitation or retardation. He is cooperative and pleasant during the interview. Eye contact is good and speech is normal rate and rhythm and fluent with no pressure. Mood is mildly depressed. Affect is full and normal. Thought process is goal-directed and organized. Thought content: There is no evidence of suicidal or homicidal ideation. There is no evidence of thoughts of . There is no evidence of hallucinations or delusions. Judgment is intact. Impulsivity is moderate. Insight: Improving. Diagnoses: [] [place] I: [] Major depressive disorder, recurrent, severe without psychosis; rule out history of alcohol use disorder [place] II: [] Deferred [place] III: [] History of Candy-en-Y gastric bypass surgery, hypertension [place] IV:[]] Primary support (marital), work issues Plan: [] Patient will continue the IOP program at [facility] as the structure, support, education, individual and group therapy will hopefully prevent worsening of the patient's symptoms which might require hospitalization. He felt safe during the interview and if it anytime he does not feel safe he will let us know or go to the emergency room. The risk, options, and possible complications and side effects of the medications were discussed with the patient and he understands and accepts these. No medication changes were made today. He will continue to follow-up with his outpatient and psychiatric providers. I again strongly recommended marital counseling for the patient and long-term individual counseling to help with his low self-esteem issues.
--- NOTE | 2020-05-09 11:20 | BH.SGPN.GN ---
Behaviors/Verbalizations/Mental Status: []Eye contact is fair. Alert and oriented. Motor activity is appropriate. Appearance is casual. grooming is appropriate. Speech is Appropriate. Mood is anxious. Affect is constricted. Thoughts are linear and logical. No evidence of psychosis or hallucinations. Client Response/Progress/Benefit: []Pt receptive of session, listened attentively to peers and provided positive input throughout group discussion. Group processed the activity and identified positive and negative forces impacting ability to complete the challenge. Pt was attentive during psychoeducation and appeared to benefit from increased insight on the impact of negative and positive forces on mental wellness. Identified wanting to continue to work on positive force of not overcommitting himself. Pt stated he will stick to his to-do list and not move onto another project until completes each task fully. Pt recommended continued IOP tx to improve healthy coping skills, challenged distorted thoughts and prevent decompensation. Narrative Note: []
--- NOTE | 2020-05-11 09:00 | BH.SGPN.GN ---
Behaviors/Verbalizations/Mental Status: []Client alert and oriented, casually dressed. Eye contact fair. Motor activity appropriate. Speech within normal limits. Affect constricted, mood dysthymic. Thoughts linear, logical, no signs of hallucinations or delusions. Reviewed client?s symptom tracker, no risk or plan for suicide ideation as of 05/11/20. Client Response/Progress/Benefit: []Client actively listened to other group member?s check-ins and group discussions. Client asked to opt out of his check in and reported his goal as ?learning healthy coping mechanisms? and stated his emotion for the day as ?present.? Benefited from group as client was able to learn from other group members. Client struggles with verbalizing his thoughts and emotions during group settings, but is gaining more awareness. Will continue IOP to learn healthy coping skills, reduce negative thinking, and prevent decompensation. Narrative Note: []
--- NOTE | 2020-05-11 10:00 | BH.SGPN.GN ---
Behaviors/Verbalizations/Mental Status: []Client alert and oriented, casually dressed, hygiene appeared to be tended to. Eye contact fair. Motor activity appropriate. Speech within normal limits. Affect constricted, mood anxious. Thoughts linear, logical, no signs of hallucinations or delusions. Client Response/Progress/Benefit: []Client responded well to session, attentive and engaged throughout discussion and activity. The group identified benefits of failure as: learning new skills, gains perspective, and helps individuals learn to succeed. Client identified fear of failure keeps him from ?trying new things to accomplish goals.? Client has shared before that he shuts down when anxious or uncomfortable. Client seemed to connect how failures can lead to positive changes. Client appeared to benefit from gaining awareness of the impact fear of failure can have on one?s mental health and wellbeing. Will continue IOP to learn healthy coping skills to replace avoidance, reduce negative thinking, and prevent decompensation. Narrative Note: []
--- NOTE | 2020-05-11 11:05 | BH.SGPN.GN ---
Behaviors/Verbalizations/Mental Status: []Client alert and oriented, neatly dressed and groomed. Eye contact good. Motor activity restless. Speech within normal limits. Affect constricted, mood agitated. Thoughts linear, logical no signs of hallucinations or delusions. Client Response/Progress/Benefit: []Client responded well to session, participating during the group activity and willing to complete the worksheet. Client completed the fear of failure worksheet and reported that fear of failure has kept client from getting mental health help. Client able to identify barriers that reinforce fear of failure which included: all or nothing thinking, difficulty admitting he has a problem, negative self-talk, and fear of what others think. Client attentive during discussion of the different strategies to help overcome fear of failure. Client reports plan to use opposite action to help overcome fear of failure. Client appeared to benefit from increasing insight to barriers and learning healthy coping skills. Will continue IOP tx to prevent decompensation, increase self-advocacy, and improve mood stability. Narrative Note: []
--- NOTE | 2020-05-14 11:01 | BH.COMM ---
Communication Note - Communication with Client Communication Note: Pt no showed/no called today. Called pt but unable to leave voicemail due to pt not having a voicemail set up.
--- NOTE | 2020-05-16 09:00 | BH.SGPN.GN ---
Behaviors/Verbalizations/Mental Status: [] Eye contact is good. Motor activity is appropriate. Appearance is casual. Speech is Appropriate. Mood is anxious. Affect is congruent. Thoughts are linear and logical. No evidence of psychosis. Reviewed daily check in sheet and no reports of suicidal ideations or intent. Client Response/Progress/Benefit: [] Pt spoke at times during group discussion. Attentive. Emotion is anxious. Shared mental health win as it was a pretty good week. He shared completion of projects and feeling that he is doing well with his emotions. Stress continues at work and he reports being irritable with certain aspects. Check-in was superficial. He benefits from listening and engaging socially with peers. Progress noted per pt report. Will continue in IOP to maintain safety, increase coping and communication, and to decrease suicidal thoughts. Narrative Note: []
--- NOTE | 2020-05-16 10:15 | BH.SGPN.GN ---
Behaviors/Verbalizations/Mental Status: [] Eye contact is good. Motor activity is appropriate. Appearance is casual. Speech is Appropriate. Mood is depressed. Affect is irritable. Thoughts are linear and logical. No evidence of psychosis. Client Response/Progress/Benefit: [] Pt was an active participant in group discussions. Attentive and provided insights during psychoeducation on benefits and disadvantages of anxiety and review of different types of Anxiety Disorders (Social Anxiety, THELMA, OCD, PTSD, and Separation Anxiety). Completed worksheet on identifying his own physical symptoms or signs of anxiety which pt reported numerous however identified most frequent as; insomnia, appetite, and low concentration. Benefited from increased awareness of physiological signs of anxiety as well as differences between 'normal' anxiety and anxiety disorder. Will continue in IOP to maintain safety, increase healthy coping, and to prevent decompensation. Narrative Note: []
--- NOTE | 2020-05-16 11:15 | BH.SGPN.GN ---
Behaviors/Verbalizations/Mental Status: []Client alert and oriented, neatly dressed and groomed. Eye contact fair. Motor activity restless. Speech within normal limits. Affect constricted, mood anxious and agitated. Thoughts linear, logical, no signs of hallucinations or delusions. Client Response/Progress/Benefit: []Client was an active participant in group discussion and taking notes throughout. Reviewed safety behaviors client engages in that reinforce anxiety. Attentive during psychoeducation on mindfulness coping skills and their impact on mental health wellness. The group practiced deep breathing and progressive muscle relaxation. Client was able to identify self-soothing and mind-based coping skills which included: 5-senses, meditation, deep breathing, journaling, and body scan. Client would like to work on spending time with pets today to manage anxiety. Appeared to benefit from practicing in the moment coping skills. Progress noted in client?s self-report of delegating tasks more often, but client continues to struggle with combating negative self-talk. Client will continue IOP tx to promote the use of healthy coping skills, improve mood stability, and reduce negative self-talk. Narrative Note: []
--- NOTE | 2020-05-18 10:10 | BH.SGPN.GN ---
Behaviors/Verbalizations/Mental Status: []Client alert and oriented, neatly dressed and groomed. Eye contact good. Motor activity restless. Speech within normal limits. Affect constricted, mood dysthymic and anxious. Thoughts linear, logical, no signs of hallucinations or delusions. Client Response/Progress/Benefit: []Client receptive to session, attentive and taking notes throughout. Listened as the group brainstormed the positive and negative aspects of stress on physical and mental health. Group did well to identify the benefits of stress as well as the impact of distress on performance and mental health. Client identified top stressors such as social distancing, job responsibility, and difficulty functioning. Client reports his stress jar is full and when it overflows client typically ?stuffs it down? but recently his stress response turned into client ?snapping? outwardly which led to IOP tx. Progress in improved awareness of how client?s stress response can create a vicious cycle and lead to more stressors. Recommended to continue IOP tx to prevent decompensation, increase the use of healthy coping skills, and reduce negative thinking. Narrative Note: []
--- NOTE | 2020-05-18 11:10 | BH.SGPN.GN ---
Behaviors/Verbalizations/Mental Status: []Client alert and oriented, casually dressed and groomed. Eye contact good. Motor activity appropriate. Speech within normal limits. Affect constricted, mood dysthymic. Thoughts linear, logical, no signs of hallucinations or delusions. Client Response/Progress/Benefit: []Client engaged in session AEB listening attentively to others, providing input, and taking notes throughout. Client remained attentive during discussion about the 4 A's of managing stress and discussed connecting with the various benefits of each. Client reported he wants to work on adapting his definition of success. Stated he now recognizes how his definition of success is unrealistic which results in increased stress. Client seemed to benefit from increased awareness of the impact of stress on mental health and increasing repertoire of stress management strategies. Client is to continue IOP level of care to increase healthy coping, improve confidence and prevent decompensation.
--- NOTE | 2020-05-18 15:35 | BH.MDN ---
Multi-Disciplinary Note - Note 30-min Individual Time Started:: 12:40 Date: 05/18/20 Eye Contact:: Fair Motor Activity:: Appropriate Appearance:: Casual Speech:: Appropriate Mood:: Anxious Affect:: Congruent Thoughts:: Linear, Logical, No evidence of hallucinations/delusions noted Staff Interventions:: thought challenging, CBT techniques, strengths perspective, other - reviewed healthy coping skills Client Response:: Pt responded well to session AEB pt openly sharing thoughts and feelings throughout session. Pt stated he feels like he had a setback because he wasn?t feeling ?right? yesterday so couldn?t go to work for several hours. Pt reported he was unable to concentrate or function at his best, so his told him to stay home in the morning until he improved. Pt stated he doesn?t understand why he had a rough day since he felt like he was doing better. Pt stated yesterday he could fall asleep until 3am because having racing thoughts about his mental health. Pt reported he was having thoughts like ?why do I have this problem? and ?How can I not be a burden?. Pt stated he recognizes these types of thoughts are unhelpful but had difficulty managing in the moment. Pt stated there is some improvement with his being more understanding of his mental health but reported at the same time she ?can be a shark? so can be loud and tries to win at all costs. Pt reported he has seen improvement with his concentration when doing tasks at work. Pt stated he is doing better with returning to his projects to finish them instead of just getting a little done for each project and not completing it. Risks/Concerns:: Pt denies suicidal/homicidal ideation, plan or intention to date. future focused. Progress Toward Goals/Plan:: Pt reports set back with having difficulty focusing and not being able to work. Pt struggling with distorted and negative thought patterns at night that are impacting ability to sleep. Pt reported since his setback he has seen some improvement with concentration and getting some of his projects complete. Pt is to continue IOP to continue use of healthy coping, challenge negative thinking and prevent decompensation. Time Stopped:: 13:15
== END 2020-05-20 23:59 ==
LOC: BHIOP 08:30
PROVIDERS: PCP Internal Medicine; Referring Provider Psychiatry & Neurology Psychiatry; Visit Provider Psychiatry & Neurology Psychiatry
DX: F33.2 Major depressive disorder, recurrent severe without psychotic features (principal); Z98.84 Bariatric surgery status; I10 Essential (primary) hypertension; M10.9 Gout, unspecified; Z79.899 Other long term (current) drug therapy; Z87.891 Personal history of nicotine dependence
CPT/HCPCS: H0035; 90832; 90834; 90853

== ENCOUNTER 2020-05-21 09:00 | Outpatient (RCR) | payer OTHER, SELFPAY ==
[2020-05-21 00:37] VITALS: BP 155/106; PULSE 72
--- NOTE | 2020-05-21 09:00 | BH.SGPN.GN ---
Behaviors/Verbalizations/Mental Status: []Client alert and oriented, casually dressed. Eye contact fair. Motor activity appropriate. Speech within normal limits. Affect constricted, mood dysthymic. Thoughts linear, logical, no signs of hallucinations or delusions. Reviewed client?s symptom tracker, no risk or plan for suicide ideation as of 05/21/20. Client Response/Progress/Benefit: []Client responded well to session, engaged in self check-in and listened to others in group discussion. Client reported feeling ?tired? after sharing he worked throughout the whole weekend. Client stated he did not work on any mental health or treatment goals as he was too busy with work. Client stated his future goals as ?increase his coping skills.? Progress limited as client is often short with his check-ins and continues to struggle with setting healthy boundaries at work. Will continue IOP to increase the use of healthy coping skills, improve mood, and challenge negative thoughts. Narrative Note: []
--- NOTE | 2020-05-21 10:12 | BH.SGPN.GN ---
Behaviors/Verbalizations/Mental Status: []Client alert and oriented, casually dressed. Eye contact good. Motor activity appropriate. Speech within normal limits. Affect constricted, mood agitated. Thoughts linear, logical, no signs of hallucinations or delusions. Client Response/Progress/Benefit: []Client engaged participant AEB client taking notes and listening to peers, but providing limited insight to discussion. Group discussed the quote as well as unhealthy coping skills. Group gave examples such as: alcohol, avoidance, taking responsibility for others, and minimizing. Client shared he often reverts to avoidance when client feels overwhelmed. Client participated in the group activity and gained awareness of the importance of having a strong base of coping skills. Client seemed to benefit from increased awareness of the importance of increasing healthy coping skills and consequences of utilizing unhealthy coping skills. Client seems to struggle with application of skills outside the tx environment. Provides input in group, but does not share how the topics or skills connect to client?s life. Will continue IOP tx to prevent decompensation, increase use of healthy coping skills, and reduce negative thinking. Narrative Note: []
--- NOTE | 2020-05-21 11:15 | BH.SGPN.GN ---
Behaviors/Verbalizations/Mental Status: []Client alert and oriented, casual dress, hygiene tended to. Eye contact fair. Motor activity appropriate. Speech within normal limits. Affect constricted, mood dysthymic. Thoughts linear, logical, no signs of hallucinations or delusions. Client Response/Progress/Benefit: []Client responded well to session, actively listening and providing examples. Client reported he needs to work on improving both internal and external coping skills. Client reported he doesn't have many healthy coping skills which is the reason he has sought mental health treatment. Group discussed the different categories of coping skills which included distraction, emotional release, grounding, self-love, and thought challenging. Progress could be hindered if client continues to prioritize work/school over his mental health. Appeared to benefit from increasing repertoire of healthy coping skills. Will continue tx to increase confidence, challenge distorted thoughts and prevent decompensation. Narrative Note: []
--- NOTE | 2020-05-23 09:00 | BH.SGPN.GN ---
Behaviors/Verbalizations/Mental Status: []Client alert and oriented, casually dressed. Eye contact fair. Motor activity appropriate. Speech within normal limits. Affect constricted, mood anxious and dysthymic. Thoughts linear, logical, no signs of hallucinations or delusions. Reviewed client?s symptom tracker, no risk or plan for suicide ideation as of 05/23/20. Client Response/Progress/Benefit: []Client responded well to session, engaged throughout and participated in group discussion. Client reported feeling ?tired and depressed? this morning. Client stated he is ?exhausted? due to working 50-60 hours per week. Benefited from group as group discussed the importance of self-care. Client stated he is depressed due to ?realizing all of the negative traits of himself? and client declined to discuss further. His goals are to increase the use of healthy coping skills like practicing meditation and yoga, crying, taking 10 minute breaks, sleeping, positive affirmations, and writing emails out of anger and deleting them. Client will continue IOP to practice healthy coping skills, improve anger management skills, and reduce negative thoughts. Narrative Note: []
--- NOTE | 2020-05-23 10:15 | BH.SGPN.GN ---
Behaviors/Verbalizations/Mental Status: []Client alert and oriented, neatly dressed and groomed. Eye contact good. Motor activity appropriate. Speech within normal limits. Affect constricted, mood anxious. Thoughts linear, logical, no signs of hallucinations or delusions. Client Response/Progress/Benefit: []Client responded well to session, attentive and occasionally contributing to discussion. Client worked with the group to identify factors that contributed to how we define ourselves which included: roles, expectations, labels, comparisons to others, circumstances, and shortcomings. Client reported he has experienced the impacts of mental health stigma and client shared stigma keeps a lot of people (himself included) from getting help. Client worked with group to identify and discuss social and perceived stigma. Client?s perceived stigma included telling himself he is lazy, a bad family member, and unreliable. Client seemed to benefit from increased awareness of how mental health stigma can impact progress and self-worth. Client to continue IOP tx to improve daily functioning, increase communication skills, and reduce negative thinking. Narrative Note: []
--- NOTE | 2020-05-23 11:10 | BH.SGPN.GN ---
Behaviors/Verbalizations/Mental Status: []Client alert and oriented, casually dressed, hygiene appeared to be tended to. Eye contact fair. Motor activity appropriate. Speech within normal limits. Affect constricted, mood dysthymic and anxious. Thoughts linear, logical, no signs of hallucinations or delusions. Client Response/Progress/Benefit: []Client semi-engaged participant AEB pt providing input at times during discussion and listened attentively to peers. Client worked with group to identify what mental stigma has prevented them from doing. Client stated for him stigma has prevented him from getting help. Group brainstormed strategies to combat social and perceived stigma which included: educating others, no longer using negative language about mental illness, being open about mental health, self-compassion and not reinforcing stigma with behaviors or labels. Client stated he will work on identifying how he reinforces perceived stigma to increase awareness and provide direction on what needs to work on to decrease self-stigma. Appeared to benefit from increasing awareness of strategies to combat stigma. Will continue IOP tx to increase healthy coping, challenge distorted thoughts, and prevent decompensation. Narrative Note: []
--- NOTE | 2020-05-23 14:41 | BH.TPR ---
Treatment Plan Review Date of Admission:: 04/25/20 Date of Treatment Plan Review:: 05/23/20 Admitting Diagnoses:: F33.2 Major depressive disorder, recurrent, severe without psychosis; rule out history of alcohol use disorder Current Diagnoses:: F33.2 Major depressive disorder, recurrent, severe without psychosis; rule out history of alcohol use disorder Patient's Response to Treatment:: Pt consistently attends IOP sessions and often contributes during group discussions. Pt struggles with utilizing skills outside treatment environment. Status of Current Problems and Symptoms: Ongoing problems. Pt continues to struggle with depressive symptoms. Pt working long hours for work and school is getting in the way of pt utilizing self-care or other skills learned in IOP. Pt focusing on how he has been using cognitive distortions for most his life and having a hard time focusing on what he can do about his current situation to make things better. Pt has reported some improvement in concentration which has improved his work and school functioning. Problem #1 Problem Name:: depression Status of Goals:: obj 1 - partially met. Pt is able to identify healthy coping skills like self-care, taking a break, opposite action, thought challenge and yoga to help him manage his depressive symptoms. However, pt struggles with consistent application of skills. obj 2 - partially met. Pt has gained insight and awareness into his communication patterns and has been making changes to be more direct and assertive. Pt working on keeping a calm tone and not shutting down when overwhelmed. Needs to continue to work on to show consistency. obj 3 - not met. DSM 5 data not able to be collected at review. Per pt's report he is able to note some improvement with his depressive symptoms with improved concentration and decreased isolation. Pt's distorted thoughts can keep him stuck and he has a hard time moving on with his day. Team Recommendations:: Team recommends continue current goal and objectives with focus on helping pt consistently apply healthy coping skills and thought challenging. Encouraged to work with pt on creating self-care plan to ensure he takes time away from work and school to help himself.
--- NOTE | 2020-05-25 09:05 | BH.SGPN.GN ---
Behaviors/Verbalizations/Mental Status: [] Eye contact is good. Motor activity is appropriate. Appearance is neat. Speech is Appropriate. Mood is anxious. Affect is congruent. Thoughts are linear and logical. No evidence of psychosis. Reviewed daily check in sheet and no reports of suicidal thoughts. Client Response/Progress/Benefit: [] Pt was an active participant in group discussions. Attentive. Daily symptom tracker notes /5 for depression and irritability. Shared with the group that he was really hard on himself yesterday. He discussed struggles with his feeling that she is distant, cold, and not supportive. He gave some recent examples. He apparently suggested some activities for the family and was immediately shut down which caused him to internalize his emotions and punish himself for stupid ideas. Group provided support and also feedback on dealing emotionally with support that can appear cold and distant which was beneficial. Progress noted as he communicated distress rather than ignore and internalize. Will continue in IOP to maintain safety, increase healthy coping and communication, and improve functioning. Narrative Note: []
--- NOTE | 2020-05-25 10:15 | BH.SGPN.GN ---
Behaviors/Verbalizations/Mental Status: [] Eye contact is good. Motor activity is appropriate. Appearance is casual. Speech is Appropriate. Mood is depressed/irritable. Affect is flat. Thoughts are linear and logical. No evidence of psychosis. Client Response/Progress/Benefit: [] Pt was an active participant in group discussions and activities. Attentive. Worked with peers to define what self-care is and it's benefits to mental health. Self-care was identified as activities that we do to; maintain/enhance our well-being, reduce stress, increase communication, improve view of self, decrease burnout, and to have fun. Group discussed the obstacles to completing self-care activities and the myths surrounding them which included; self-care is selfish, I'm too busy for them, self-care is just having fun, I don't deserve to do self-care, self-care has to be planned, self-care should only be done when I have nothing else to do. Group broke into smaller groups and worked together to bust these myths. Pt benefited due to increased awareness of importance of self-care in mental health. Will continue in IOP to maintain safety, increase coping and communication, and improve functioning. Narrative Note: []
--- NOTE | 2020-05-25 11:15 | BH.SGPN.GN ---
Behaviors/Verbalizations/Mental Status: []Client alert and oriented, casually dressed and groomed. Eye contact good. Motor activity restless. Speech within normal limits. Affect constricted, mood agitated and dysthymic. Thoughts linear, logical, no signs of hallucinations or delusions. Client Response/Progress/Benefit: []Client active participant AEB client providing input during discussions and listened attentively to peers. Participated in group discussion on the various areas of self-care and types of self-care activities for each area. Client completed worksheet in which client identified current self-care practices and what self-care activities client wants to start using. Client reports belief the area of professional self-care is both a strength and weakness for client. Client shared ?it?s work I?m passionate about, but I don?t have work-life balance.? Client reports plan to work on this by setting a 40-hour work week limit on himself. Client reports increased self-awareness, but client is struggles with applying coping skills outside of the group setting. Will continue IOP tx to further promote the use of healthy coping skills, increase healthy boundary setting, and improve mood stability. Narrative Note: []
--- NOTE | 2020-05-28 10:15 | BH.SGPN.GN ---
Behaviors/Verbalizations/Mental Status: []Client alert and oriented, well dressed and groomed. Eye contact good. Motor activity restless. Speech within normal limits. Affect constricted, mood agitated. Thoughts linear, logical, no signs of hallucinations or delusions Client Response/Progress/Benefit: []Client engaged in session AEB client notes and listening attentively to peers. Client took notes as the group with identified barriers to setting healthy boundaries. These included: fear of abandonment, low self-worth, lack of respect, fear of hurting, and fear of the unknown. Client attentive during psychoeducation on the types of boundaries. Client was quiet during session, but he nodded several times during discussion. Client seemed to benefit from increased awareness of how boundaries impact mental health. Progress minimal as client reports increased awareness to barriers keeping client ?stuck,? but he reports lack of follow through with coping skills and self-advocacy of needs. Will continue IOP tx to improve mood stability, increase interpersonal effectiveness skills, and improve daily functioning. Narrative Note: []
--- NOTE | 2020-05-28 11:20 | BH.SGPN.GN ---
Behaviors/Verbalizations/Mental Status: []Client alert and oriented, casually dressed and appropriately groomed. Eye contact good. Motor activity appropriate. Speech within normal limits. Affect constricted, mood dysthymic. Thoughts linear and intact. no signs of delusions or hallucinations. Client Response/Progress/Benefit: []Client responded well to session AEB pt listening attentively to peers and providing input at times. Client engaged in the boundary self-assessment activity and attentive during psychoeducation on the different boundary styles. Client participated in review of personal bill of rights and discussion about how adopting certain bill of rights can help improve boundary setting. Client stated from the personal bill of rights worksheet he wants to work on adopting the belief I have a right to ask for what I want. Client stated he tends to be passive and do what others want to do which results in client's needs not being met. Will continue IOP tx to increase consistent use of healthy coping, challenge distorted thoughts and prevent decompensation. Narrative Note: []
--- NOTE | 2020-05-28 15:30 | BH.MDN ---
Multi-Disciplinary Note - Note 30-min Individual Time Started:: 09:30 Date: 05/28/20 Purpose of session/treatment goals addressed:: Purpose of session was to address goal 1 from treatment plan. Eye Contact:: Fair Motor Activity:: Restless Appearance:: Casual Speech:: Appropriate Mood:: Anxious, Depressed Affect:: Flat Thoughts:: Linear, Logical, No evidence of hallucinations/delusions noted Staff Interventions:: Therapist used open ended questions to elicit pt?s current symptoms and stressors. Therapist processed recent relationship stressor. Gently challenged pt?s distorted thought patterns. Therapist provided psychoeducation about the importance of open, honest communication. Therapist helped pt identify strategies to manage current stressor. Provided homework for pt to engage in self-care at least 3 times in the next week. Client Response:: Pt stated feeling ?depressed? today. Pt explained last night his was upset with him for not doing enough around the house. Pt stated his made the comment that she is almost to the point of ?kicking me out?. Pt reported he is feeling disappointed in himself for not doing good enough at home. Pt stated he thought he had stepped up at home with doing more chores but reported ?it never seems to be enough?. Pt reported his will constantly point out something that he didn?t do good enough in. With assistance from therapist pt recognizes he is trying to mind read what his wants him to do, which results in him not meeting her expectations. Pt connected with education about open communication, stated he often is passive. Pt stated he will talk to his this week about her expectations for house chores, so he no longer has to guess. Pt reported he is continuing to struggle with managing work-life balance, often over committing. Pt stated due to putting most of his time into work he has not been engaging in self-care or using his healthy coping skills consistently. Pt stated he recognizes he needs to put forth more effort and focus onto himself or he will eventually burn out. Pt agreeable to have discussion with by this Thursday and engage in self-care at least 3 times in the next week. Risks/Concerns:: Pt denies suicidal ideation, plan or intention to date. Progress Toward Goals/Plan:: Limited progress AEB pt continuing to report depressed symptoms and not feeling he is getting ?better?. Pt admits he has not been applying his skills outside treatment environment on a consistent basis. Pt seems to be avoiding working on himself by over committing at work and not giving himself enough time to use his skills and engage in self-care. Pt is to continue IOP level of care to increase consistent use of healthy coping, increase confidence and prevent decompensation. Time Stopped:: 10:05
--- NOTE | 2020-05-30 09:05 | BH.SGPN.GN ---
Behaviors/Verbalizations/Mental Status: [] Eye contact is good. Motor activity is appropriate. Appearance is casual. Speech is Appropriate. Mood is euthymic. Affect is full. Thoughts are linear and logical. No evidence of psychosis. Reviewed daily check in sheet and no reports of suicidal ideations or intent. Client Response/Progress/Benefit: [] Pt participated at times during the group discussion. Attentive. Provided appropriate feedback. Pt choose not to share, however did not appear to be in distress as he was smiling and engaged in group. No progress noted. Benefited from group discussion and support from peers. Will continue in IOP to maintain safety, improve functioning, and prevent decompensation. Narrative Note: []
--- NOTE | 2020-05-30 10:00 | BH.SGPN.GN ---
Behaviors/Verbalizations/Mental Status: []Client alert and oriented, neatly dressed and groomed. Eye contact good. Motor activity restless. Speech within normal limits. Affect constricted, mood anxious. Thoughts linear, logical, no signs of hallucinations or delusions. Client Response/Progress/Benefit: []Client engaged throughout session AEB providing input when prompted. Appeared to connect with discussion on crisis and how unhealthy coping could result in a personal crisis. Group reflected on the importance of having awareness of personal warning signs in order to prevent reaching crisis point. Group identified potential warning signs for crisis and client completed the personal warning signs worksheet. Client identified personal crisis warning signs to include: lack of motivation, feeling disconnected, and uncontrollable worry. Client benefited from increasing awareness of what leads to crisis and personal warning signs. Progress noted as client has increased self-awareness, but he continues to struggle with skill application and boundary setting. Will continue IOP tx to prevent decompensation and improve daily functioning that has been impaired by symptoms. Narrative Note: []
--- NOTE | 2020-05-31 11:00 | BH.SGPN.GN ---
Behaviors/Verbalizations/Mental Status: []Client alert and oriented, casually dressed and groomed. Eye contact good. Motor activity appropriate. Speech within normal limits. Mood euthymic, affect constricted. Thoughts linear, logical, no signs of hallucinations or delusions. Client Response/Progress/Benefit: []Client responded well to session as evidenced by client listening attentively to others and providing strategies during discussion. Client identified his warning signs for crisis and gained further awareness of earliest warning signs. Client created a crisis action plan to help client better manage warning signs for crisis. Client?s action plan for feeling disconnected includes: yoga, 5 senses, making new friends, positive affirmations, zooming with friends/family, and engaging in self-care to reconnect with self. Client appeared to benefit from creating a crisis action plan and increasing self-awareness. Client to continue IOP tx to increase consistent use of healthy coping and prevent decompensation.
--- NOTE | 2020-06-01 09:00 | BH.SGPN.GN ---
Behaviors/Verbalizations/Mental Status: []Client alert and oriented, casually dressed. Eye contact fair. Motor activity appropriate. Using laughter and humor as a defense mechanism at times. Affect constricted, mood dysthymic and anxious. Thoughts linear, logical, no signs of hallucinations or delusions. Reviewed client?s symptom tracker, no risk or plan for suicide ideation, plan, or intent as of 06/01/20. Client Response/Progress/Benefit: []Client responded well to session, engaged with self-check in and listened to other group members shared. Client reported feeling ?exhausted? this morning as he picked up another project for his job and has stressors of having multiple responsibilities at work. When asked about completing his goal of self-care, client responded ?I don?t have enough time for self-care.? Progress towards reducing anxiety appears to be limited due to client?s consistent self-report of lack of self-care and coping skill application. Benefited from group as other group members offered positive feedback to continue practicing self-care like yoga and prepping his meals. Will continue IOP to practice healthy coping skills, increase self-care, and challenge negative thought patterns. Narrative Note: []
--- NOTE | 2020-06-01 10:05 | BH.SGPN.GN ---
Behaviors/Verbalizations/Mental Status: []Client alert and oriented, casually dressed and groomed. Eye contact good. Motor activity appropriate. Speech within normal limits. Affect constricted, mood dysthymic. Thoughts linear, logical, no signs of hallucinations or delusions. Client Response/Progress/Benefit: []Client mostly passive participant AEB limited contributions during discussion, however engaged during activity and attentively listened to peers. Group reported even though change can be scary, change can be positive. Discussed how change can lead to improved mental health and relationships. Client worked with the group to identify barriers to making change, which included: fear of failure, uncomfortable emotions, and putting others first. Client participated in the activity where they identified and discussed the emotions related to change. Benefited from increased awareness and understanding of emotions, benefits, and barriers related to change. Will continue IOP tx as client can benefit from reducing depressed symptoms, improve confidence and preventing decompensation.
--- NOTE | 2020-06-01 11:05 | BH.SGPN.GN ---
Behaviors/Verbalizations/Mental Status: []Client alert and oriented, neatly dressed and groomed. Eye contact good. Motor activity restless. Speech within normal limits. Affect constricted, mood anxious. Thoughts linear, logical, no signs of hallucinations or delusions. Client Response/Progress/Benefit: []Client responded well to session AEB taking notes and actively participating. Client contributed during psychoeducation on the change process and different emotions in each stage of change. Client also contributed during the activity. Client identified a change client would like to make to improve mental health which was to ?spend 3-5 hours on my presentation for work.? Client consistently reports lack of self-care due to poor work-life balance. Client was receptive to the group?s recommendation to spend 5-10 minutes a day doing yoga. Client reports belief he is currently in ?a mix of stages.? Client contributed during group discussion on using a decisional balance tool to promote change. Appeared to benefit from identifying what stage of change client is in and creating a small goal. Will continue IOP tx to improve self-care, reduce anxiety, and increase healthy boundary setting. Narrative Note: []
--- NOTE | 2020-06-04 09:00 | BH.SGPN.GN ---
This psychotherapy group was provided via telehealth using two-way, real-time interactive telecommunication technology between the patients and the provider. The interactive telecommunication technology included audio and video. The patient was offered telemedicine as an option for care delivery during the COVID-19 pandemic and consented to this option. Patient location: [place] Provider located at [facility] Behaviors/Verbalizations/Mental Status: []Client alert and oriented, casually dressed. Eye contact fair. Motor activity appropriate. Speech within normal limits. Affect constricted, mood irritable and dysthymic. Thoughts linear, logical, no signs of hallucinations or delusions. Reviewed client?s symptom tracker, no risk for suicidal ideation, plan, or intent as of 06/04/20. Client Response/Progress/Benefit: []Client responded well to session, engaged throughout and participated in group discussion. Client reported feeling ?anxious? this morning as he shared his stressful experiences over the weekend. Identified painting, yoga, and affirmations as healthy coping skills. Therapist asked client what goals he is working toward and client responded ?I don?t know.? Progress limited as client does not share much information in group and no goals to report. Benefited from group as client connected with peers and peers hold client accountable to practice healthy coping skills. Will continue IOP to increase the use of healthy coping skills, improve daily functioning, and increase stress and anger management. Narrative Note: []
--- NOTE | 2020-06-04 10:10 | BH.SGPN.GN ---
Behaviors/Verbalizations/Mental Status: []Eye contact is good. Alert and oriented. Motor activity is appropriate. Appearance is casual. grooming is appropriate. Speech is Appropriate. Mood is dysthymic. Affect is congruent. Thoughts are linear and logical. No evidence of psychosis or hallucinations. Client Response/Progress/Benefit: []Pt engaged participant AEB pt contributing thoughts and feelings during session and engaging in activity. Pt assisted group with identifying consequences of not expressing self in a healthy way which included: resentment, lashing out, hurting others, needs not getting met, and mental health negatively impacted. Pt reported he manages his emotions by shutting down. Pt stated he puts others emotions before his own so doesn't express how he feels to avoid hurting anyone. Pt reported his emotions and thoughts have been invalidated previously so he has the belief he might has well say nothing. Pt recognizes his needs do not get met and reinforces his depressive symptoms. Pt seemed to benefit from increased awareness of the impact unmanaged emotions can have on mental health. Pt is to continue IOP to increase use of healthy coping, increase self-confidence and prevent decompensation. Narrative Note: []
--- NOTE | 2020-06-04 11:15 | BH.SGPN.GN ---
Behaviors/Verbalizations/Mental Status: []Client alert and oriented, casually dressed and groomed. Eye contact good. Motor activity appropriate. Speech within normal limits. Affect congruent, mood dysthymic. Thoughts linear, logical, no signs of hallucinations or delusions. Client Response/Progress/Benefit: []Client engaged in session AEB client listening attentively to peers and providing input. Attentive during psychoeducation on 4 zones of regulation. Client able to identify feelings and behaviors for each zone. Client identified coping skills can use to support self in each zone. Client stated belief that he is most often in the blue zone because stays in a low alertness zone when feeling depressed, which is often. Client reported he wants to work on asking for helping and be active either by doing yoga or spin bike to help him get out of blue zone when needs to be at a different energy level. Benefited from increased education on zones of regulation or stages of alertness for emotions and healthy coping skills to use for each zone. Will continue IOP tx to prevent decompensation, increase self-worth, and challenge distorted thoughts. Narrative Note: []
--- NOTE | 2020-06-06 09:05 | BH.SGPN.GN ---
Behaviors/Verbalizations/Mental Status: [] Eye contact is good. Motor activity is appropriate. Appearance is disheveled. Speech is Appropriate. Mood is depressed. Affect is flat. Thoughts are linear and logical. No evidence of psychosis. Reviewed daily check in sheet and pt reports 2/5 for suicidal thoughts and 1/5 for intent. Client Response/Progress/Benefit: [] Pt participated at times during group discussions. Attentive. Declined to shared during check-in stating no sir. Appeared more distracted than usual. No progress noted. Benefited from group discussions. Will continue in IOP to maintain safety, increase healthy coping, and stabilize mood. Narrative Note: []
--- NOTE | 2020-06-06 10:26 | BH.COMM_ITS ---
Communication Note - Communication with Client Communication Note: Pt approached therapist after group reports that he was feeling nausea and felt it best if he went home. Reviewed his scores which showed 2/5 for suicidal thoughts and a 1/5 for intent. Met with pt briefly to perform risk assessment. Pt denies any active suicidal thoughts, plan, or intent. Reports passive thoughts of and survivial ambivlance mainly related to feeling like he is a failure. This mainly related to small events such as not cleaning up after himself. We processed this briefly. Future- oriented. Protective factors. Contracts for safety.
--- NOTE | 2020-06-08 10:05 | BH.SGPN.GN ---
Behaviors/Verbalizations/Mental Status: [] Eye contact is good. Motor activity is appropriate. Appearance is casual. Speech is Appropriate. Mood is anxious. Affect is congruent. Thoughts are linear and logical. No evidence of psychosis. Client Response/Progress/Benefit: [] Pt was an active participant in group discussion and completed group worksheet. Attentive. Provided appropriate feedback. Group worked together to define anger and discussed the ways anger can impact one internally and externally. Pt identified being misunderstood, grief, and lack of respect as being internal events or feelings that can lead to anger. Pt also identified external ways that he commonly expresses his anger which includes; avoidance and shutting people out. Benefited from group by increasing understanding of the impact of anger on mental health. Will continue in IOP to maintain safety, prevent decompensation, and to increase healthy coping. Narrative Note: []
--- NOTE | 2020-06-08 11:00 | BH.SGPN.GN ---
Behaviors/Verbalizations/Mental Status: []Client alert and oriented, neatly dressed and groomed. Eye contact good. Motor activity restless. Speech within normal limits. Affect constricted, mood euthymic. Thoughts linear, logical, no signs of hallucinations or delusions. Client Response/Progress/Benefit: []Pt was engaged throughout AEB contributing to group discussion and self-reflection. Pt contributed as the group provided examples of physical warning signs for anger and identified personal warning signs. These included: tunnel vision, increased heart rate, and redness. Pt contributed as group brainstormed healthy coping skills for better managing anger which included: music, walking/exercise, meditation, reflecting on consequences, and grounding. Pt appeared to benefit from identifying different techniques to manage anger as well as gaining awareness of potential consequences of unmanaged anger. Pt selected listening to understand as the coping skill pt would like to try to regulate anger. Progress noted as pt reports an improved mood today, but pt continues to struggle with establishing work-life balance. Will continue IOP tx to promote the use of healthy coping skills and improve boundary setting. Narrative Note: []
--- NOTE | 2020-06-08 15:37 | BH.MDN_ITS ---
Multi-Disciplinary Note - Note 45-min Individual Time Started:: 09:02 Date: 06/08/20 Purpose of session/treatment goals addressed:: Purpose of session was to address goal 1 from MTP. Eye Contact:: Good Motor Activity:: Appropriate Appearance:: Casual Speech:: Appropriate Mood:: Euthymic Affect:: Congruent Thoughts:: Linear, Logical, No evidence of hallucinations/delusions noted Staff Interventions:: CBT techniques, strengths perspective, goal setting Client Response:: Pt reported he has been struggling with migraines for the last couple days and has took some time off work to rest. Pt reported he doesn't feel depressed currently. Pt reported he is still stressed at work because there is a lot to get done and he often has to work long hours. Pt stated he has been trying to delegate more tasks to others at work because he recognizes he cannot do all the projects on his own. Pt reported he had a positive date night with his . Stated they had good conversation and he enjoyed himself. Pt reported he has been doing yoga 2 to 3 times a week which has been helping him feel more relaxed and calm. Pt stated he has been taking 1-2 hours after each IOP session to spend time relaxing. Pt stated he now recognizes the importance of self-care and has intentionally been taking time for himself. Pt reported his goal for the weekend is to have 4-5 hours of time for relaxation and doing thing he likes to do. Risks/Concerns:: Denies suicidal ideation, plan, and intention to date. future focused. Progress Toward Goals/Plan:: Progress noted AEB pt reporting not feeling de pressed recently. Pt has been applying skills learned in IOP more consistently and taking time for self-care. Pt still reports stress at work, but has been trying to delegate his responsibilities to others for help. Pt is to continue IOP to continue use of healthy skills, continue self-care practices and prevent decompensation. Time Stopped:: 09:45
--- NOTE | 2020-06-11 09:00 | BH.SGPN.GN ---
Behaviors/Verbalizations/Mental Status: []Client alert and oriented, casually dressed. Eye contact fair. Motor activity appropriate. Speech within normal limits but inappropriate at times AEB engaging in side conversations. Affect constricted, mood anxious. Thoughts linear, logical, no signs of hallucinations or delusions. Reviewed client?s symptom tracker, client scored himself within his baseline on 06/11/20. Client Response/Progress/Benefit: []Client responded well to session, engaged throughout and participated in group discussion. Client reported feeling ?content? this morning. Identified an increase of self-care by taking more breaks within work days and practicing yoga as healthy coping skills to decrease his stressor of ?being overworked.? Progress noted as client reports using self-care during work. 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 Reported his current goals are to increase healthy coping skills, decrease ruminations, and increase self-care. Benefited from group as client continues to connect with other group members. Will continue IOP to promote the use of healthy coping skills, improve mood, and challenge negative thoughts. Narrative Note: []
--- NOTE | 2020-06-11 10:00 | BH.SGPN.GN ---
Behaviors/Verbalizations/Mental Status: [] Client alert and oriented, casually dressed and grooming fair. Eye contact good. Motor activity appropriate. Speech within normal limits. Affect congruent, mood anxious. Thoughts linear, logical, no signs of hallucinations or delusions. Client Response/Progress/Benefit: [] Client active participant AEB providing input to discussion, taking notes, and listening attentively to peers. Reported connecting to topic of social supports. Group identified the benefits of having a support system such as: emotional release, ability to rebound quicker after a setback, gain perspective, and not feeling alone. Group discussed different types of support, and client noted health insurance and savings accounts as potential resources. Group also discussed the barriers to accessing support in which client noted fear his supports will leave if he is overly reliant on them as a barrier he struggles with. He did well to engage in the social support activity AEB taking on a leadership role and providing supportive feedback. Seemed to benefit from increased awareness of potential benefits of social support. Progress noted in client?s improved communication and willingness to ask for help. Will continue IOP tx to promote gains and further reduce mental health sx. Narrative Note: []
--- NOTE | 2020-06-11 11:13 | BH.SGPN.GN ---
Behaviors/Verbalizations/Mental Status: []Client alert and oriented, neatly dressed and groomed. Eye contact good. Motor activity appropriate. Speech within normal limits. Affect constricted, mood agitated. Thoughts linear, logical, no signs of hallucinations or delusions. Client Response/Progress/Benefit: []Client an active participant throughout AEB taking notes and participating when prompted. Client participated in the group activity highlighting the various barriers to effectively utilizing supports and strategies the group used. Client participated in discussion of the four types of support (emotion, tangible, informational, and social) and gave examples for all types. Client reports wanting to work on increasing social support and he plans to do this by reaching out to peers who understand mental health. Client stated he has been doing this already in IOP, but he wants to start doing this outside of IOP. Client seemed to benefit from identifying the type of support client wants to improve. Client to continue in IOP tx to promote the use of healthy coping skills, reduce avoidance behaviors, and improve communication skills. Narrative Note: []
--- NOTE | 2020-06-13 08:57 | BH.SGPN.GN ---
Behaviors/Verbalizations/Mental Status: [] Eye contact is good. Alert and oriented. Motor activity is appropriate. Appearance is casual. grooming is appropriate. Speech is Appropriate. Mood is euthymic, anxious. Affect is congruent. Thoughts are linear and logical. No evidence of psychosis or hallucinations. Client Response/Progress/Benefit: [] Pt engaged in session AEB listening to others, providing feedback, and willingness to share thoughts and feelings with group. Pt did well to identify personal wins. Shared that he was able to reach out to friends and participated in a group trivia night which he identified as self-care and noted is contributing to a positive mood today. Additional mental health win identified as continuing to make biking and yoga a priority as these are activities he feels reduce anxiety and contribute to overall mood stability. Expressed that his last day will be this week and he is worried about maintaining balance post discharge. Willing to discuss further with individual therapist to review maintenance plan. Pt stated current stressor is asking for help from others but indicated he is working on this. Recommended continued IOP tx to further review skills learned and maintain gains prior to discharge Thursday. Narrative Note: []
--- NOTE | 2020-06-13 10:10 | BH.SGPN.GN ---
Behaviors/Verbalizations/Mental Status: []Client alert and oriented, neatly dressed and groomed. Eye contact good. Motor activity restless. Speech within normal limits. Affect constricted, mood euthymic. Thoughts linear, logical, no signs of hallucinations or delusions. Client Response/Progress/Benefit: []Pt was an active participant in group discussion and was attentive during psychoeducation. Provided input on the quote of the day and shared ?if we don?t challenge the negative thoughts we don?t get better.? Group was primarily educational and introduced and gave examples of the 10 cognitive distortions. Pt provided some examples of personal experiences for certain cognitive distortions. Benefited from education and increased awareness of cognitive distortions and role that they play in negative thoughts and emotions. Will continue in IOP to reinforce healthy coping skills and establish aftercare. Narrative Note: []
--- NOTE | 2020-06-15 10:12 | BH.SGPN.GN ---
Behaviors/Verbalizations/Mental Status: []Client alert and oriented, casually dressed and groomed. Eye contact good. Motor activity appropriate. Speech within normal limits. Affect congruent, mood anxious and euthymic. Thoughts linear, logical, no signs of hallucinations or delusions. Client Response/Progress/Benefit: []Client was a mostly active participant AEB contributing to discussion, taking notes, and engaging in group activity. Connected with the topic of pitfalls and indicated that for him pitfalls include ?falling down and not expecting it?. He contributed to the group discussion on barriers that keep them from choosing a healthier path to mental wellness such as pitfalls. Group worked together to identify examples of personal pitfalls which included; distorted thinking, lack of motivation, fear of failure, self-blame, and unhealthy coping. Client identified obsessing over the details of something and rumination as some of his own personal pitfalls. Noted connecting with idea that pitfalls can sometimes be hard to identify. Engaged during the activity by taking on a leadership role, offering encouragement, and providing feedback throughout. Client benefited from group as he learned to identify potential barriers to improving mental health symptoms. Client discharge from [facility] on this date, encouraged to follow-up with outpatient counseling to continue to promote progress and maintain gains made. Narrative Note: []
--- NOTE | 2020-06-15 11:13 | BH.SGPN.GN ---
Behaviors/Verbalizations/Mental Status: []Client alert and oriented, neatly dressed and groomed. Eye contact good. Motor activity appropriate. Speech within normal limits. Affect constricted, mood anxious. Thoughts linear, logical, no signs of hallucinations or delusions. Client Response/Progress/Benefit: []Client receptive of session, engaged throughout AEB client participating to discussion and taking notes. Client completed a worksheet where client identified personal pitfalls that could impact mental health progress. Client?s pitfalls included: use of should statements, over-committing himself, and procrastination. Attentive and contributing during group brainstorm of strategies to overcome pitfalls. Client will work on overcoming pitfalls by practicing thought reframing as this has helped client make progress while in IOP. Benefited from identifying personal pitfalls and strategies to overcome these pitfalls. Progress made in client?s increase self-awareness and ability to challenge distortions. Will discharge from IOP tx as client no longer meets criteria for IOP level of care. Narrative Note: []
--- NOTE | 2020-06-15 13:38 | BH.DS ---
Discharge Summary - Demographics Date of Admission:: 04/25/20 Discharge Date: 06/15/20 Presenting Problems at Admission:: Pt referred to IOP by [facility] due to patient having thoughts of suicide by using a gun. At admission pt's negative thoughts about feeling like a failure detoriated pt's self-worth. Pt endorsed difficulty concentrating, having a hard time completing projects, decrease in appetite, negative self-talk, and passive thoughts of . Pt's conflict with was impacting his life at home and work because his is his boss. Discharge Diagnoses:: F33.1 Major depressive disorder, recurrent, moderate without psychosis; rule out history of alcohol use disorder Reason for Discharge:: Pt has made significant progress since starting IOP and no longer meets medical necessity for IOP level of care. - Treatment Progress During Treatment & Response: Pt made significant treatment progress AEB pt's scores on the DSM 5 cross cutting measure. Pt's DSM 5 scores show a 75% reduction in depression, 67% reduction in anxiety, and an overall 78% reduction in symptoms. Pt responded well to treatment AEB pt's consistent attendance, actively engaged in group sessions and completing assigned homework from individual counseling. Issues Still to be Addressed:: Continued therapy recommended to reinforce healthy coping skills, boundary setting, reframing distorted thoughts and engaging in self-care. Discharge Recommendations/Instructions:: Pt to continue counseling with outpatient therapist Aleta Frias. Pt is currently on waiting list for psychiatry at [facility]. Pt's PCP will manage medications until can get psychiatry appointment. Discharge Handout: Complete Discharge Handout with client on aftercare options and continuity of care.
--- NOTE | 2020-06-15 15:15 | BH.MDN_ITS ---
Multi-Disciplinary Note - Note 45-min Individual Time Started:: 09:02 Date: 06/15/20 Purpose of session/treatment goals addressed:: Purpose of session was to review treatment progress, identify strategies to help maintain progress and review aftercare plans. Eye Contact:: Good Motor Activity:: Appropriate Appearance:: Casual Speech:: Appropriate Mood:: Euthymic Affect:: Congruent Thoughts:: Linear, Logical, No evidence of hallucinations/delusions noted Staff Interventions:: CBT techniques, discharge planning, strengths perspective, reviewed DSM-5 Client Response:: Pt reported he is getting better with using his healthy coping skills. Pt stated he has been able to get through setbacks and knows there will be other setbacks but feels more equipped to manage a setback. 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 Pt reported he has been doing more around the house with chores. Still has worries that he isn't cleaning to his 's expectations but knows he needs to communicate directly with her. Pt notes significant progress with decrease in depression, increased self-care, improved communication skills, decreased isolation and ability to manage stress more effectively. Pt identified strategies to help him maintain progress include the following: listen before respond, deep breathing, making a daily to do list, self-care, asking for help, delegating to others, open communication, and challenging distorted thoughts. Pt reported feeling more ready for discharge. Risks/Concerns:: Denies suicidal ideation, plan or intention to date. Progress Toward Goals/Plan:: Progress noted AEB pt reporting decrease in depression, improved daily functioning, ability to manage stressors more effectively, improved communication and decreased isolation. Pt reported realizes importance of taking care of himself and has put forth more effort to engage in self-care. 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 Plan is for pt to discharge from [facility] today. Pt has appointment with Aleta Frias for individual counseling through [facility] on at 2pm. Pt is on wait list at counseling center for psychiatry. Pt stated he will follow up with his PCP for medication management until gets appointment with psychiatry. Time Stopped:: 09:50
== END 2020-06-15 15:27 | disposition home or self-care (01) ==
LOC: BHIOP 09:00
PROVIDERS: PCP Internal Medicine; Referring Provider Psychiatry & Neurology Psychiatry; Visit Provider Psychiatry & Neurology Psychiatry
DX: F33.1 Major depressive disorder, recurrent, moderate (principal)
CPT/HCPCS: H0035; 90832; 90834; 90853